=== PATIENT | female | born 1970 | race Caucasian/White ===

== ENCOUNTER → 2017-01-13 | Outpatient (CLI) | payer OTHER ==
--- NOTE | 2017-01-13 10:39 | XR ---
EXAMINATION TYPE: XR lumbosacral spine min 4V DATE OF EXAM: 01/13/2017 10:27 AM CLINICAL HISTORY: pain COMPARISON: NONE TECHNIQUE: Frontal, lateral, and oblique images of the lumbar spine are obtained. FINDINGS: There are 5 lumbar type vertebral bodies identified. The lumbar spine shows satisfactory alignment without evidence of acute fracture or dislocation. Vertebral body heights are within normal limits. Mild scattered degenerative disc space narrowing identified. The overlying soft tissue murphy ears unremarkable. IMPRESSION: No acute fracture or dislocation is seen in the lumbar spine.ICD 10 NO FRACTURE, INITIAL EVALUATION
--- NOTE | 2017-01-13 10:44 | XR ---
EXAMINATION TYPE: XR Hip Bilateral Complete DATE OF EXAM: 01/13/2017 10:27 AM CLINICAL HISTORY: pain TECHNIQUE: AP and frogleg views of the right hip are obtained. COMPARISON: None. FINDINGS: There is no acute fracture/dislocation evident. The joint space appears within normal li mits. The overlying soft tissue appears unremarkable. IMPRESSION: 1. There is no acute fracture or dislocation. ICD 10 NO FRACTURE, INITIAL EVALUATION EXAMINATION TYPE: XR Hip Bilateral Complete DATE OF EXAM: 01/13/2017 10:27 AM CLINICAL HISTORY: pain TECHNIQUE: AP and frogleg views of the left hip are obtained. COMPARISON: None. FINDINGS: There is no acute fracture/dislocation evident. The joint space appears within normal li mits. The overlying soft tissue appears unremarkable.
== END ==
LOC: RADXRMAIN 10:00
PROVIDERS: ATTEND Family Medicine
DX: M25.551 Pain in right hip (principal); M25.552 Pain in left hip; M54.9 Dorsalgia, unspecified
CPT/HCPCS: 72110; 73521

== ENCOUNTER → 2017-04-20 | Outpatient (CLI) | payer OTHER ==
--- NOTE | 2017-04-20 19:35 | CT ---
EXAMINATION TYPE: CT abdomen pelvis wo con DATE OF EXAM: 04/20/2017 COMPARISON: NONE HISTORY: Patient complains of rlq pain. CT DLP: 214.2 mGycm Automated exposure control for dose reduction was used. TECHNIQUE: Helical acquisition of images was performed from the lung bases through the pelvis. There is oral contrast. FINDINGS: There are calcifications in the right lower lobe probably due to old scarring and granulomatous disea se. There is no pleural effusion. Liver shows no focal defect. Bile ducts are not dilated. Gallbladder appears normal. Spleen and pancr eas appear normal. There is no ascites. There is no adrenal mass. Kidneys have normal size and contour. There is no hydronephrosis. There is no retroperitoneal adenopathy. There is no ascites. I see no intestinal wall thickening. There are no dilated loops. Bladder distends smoothly. I see no bony destructive process. Appendix is filled with contrast and appears normal. There is mild atherosclerotic vascular calcification. IMPRESSION: NORMAL APPENDIX. NO EVIDENCE OF RENAL STONE OR OBSTRUCTION. ATHEROSCLEROTIC VASCULAR DISEASE IN THIS RELATIVELY YOUNG PATIENT.
== END ==
LOC: RADCTMAIN 18:55
PROVIDERS: ATTEND Family Medicine
DX: I70.90 Unspecified atherosclerosis (principal); R10.9 Unspecified abdominal pain; R10.2 Pelvic and perineal pain
CPT/HCPCS: 74176

== ENCOUNTER → 2017-05-07 | Outpatient (CLI) | payer OTHER ==
--- NOTE | 2017-05-07 16:06 | XR ---
EXAMINATION TYPE: XR finger LT DATE OF EXAM: 05/07/2017 COMPARISON: NONE HISTORY: Finger pain TECHNIQUE: Three-view left fifth digit FINDINGS: No acute fractures evident. Joint spaces are narrowed. Soft tissues are unremarkable. Follow-up study can be performed 7-10 days from acute trauma for continued pain. IMPRESSION: 1. Normal three-view left fifth digit.
== END | disposition home or self-care (01) ==
LOC: RADXRMAIN 15:36
PROVIDERS: ATTEND Family Medicine
DX: M79.645 Pain in left finger(s) (principal)

== ENCOUNTER → 2017-08-20 | Outpatient (CLI) | payer OTHER ==
--- NOTE | 2017-08-20 10:45 | CT ---
EXAMINATION TYPE: CT pelvis wo con DATE OF EXAM: 08/20/2017 COMPARISON: 04/20/2017 HISTORY: Pelvic pain CT DLP: 328 mGycm Automated exposure control for dose reduction was used. CT the pelvis performed on a spiral scan at 5 mm thick sections. Study is performed with oral contras t. FINDINGS: Loops of bowel distended with oral contrast in the lower abdomen are unremarkable. Fecal debris is wi thin the colon. Small bowel loops distended with oral contrast within the pelvis appear normal. The a ppendix appears unremarkable. Urinary bladder is unremarkable. There appears to be air at the vaginal cuff. Uterus is not identifie d. Adnexal regions are clear. Very minimal free fluid is within the pelvis. This can be physiologic. Osseous structures appear intact. Sacroiliac joints are unremarkable. Femoral heads articulate with t he acetabulum. Symphysis pubis is within normal limits. IMPRESSION: 1. UNREMARKABLE PELVIS.
== END | disposition home or self-care (01) ==
LOC: RADCTMAIN 08:46
PROVIDERS: ATTEND Family Medicine
DX: R10.2 Pelvic and perineal pain (principal)
CPT/HCPCS: 72192

== ENCOUNTER → 2017-10-02 | Outpatient (CLI) | payer OTHER ==
--- NOTE | 2017-10-06 07:23 | MM ---
Reason for exam: additional evaluation requested from abnormal screening. Last mammogram was performed 1 month ago. History: Patient is postmenopausal and has history of other cancer at age 35. Took hormonal contraceptives for 12 years. Taking estrogen beginning at age 45. Physical Findings: Nurse did not find any significant physical abnormalities on exam. MG Work Up Mamm w CAD LT LM, CC with magnification, and LM with magnification view(s) were taken of the left breast. Prior study comparison: September 15, 2017, bilateral MG screening mammo w CAD. October 13, 2014, bilateral MG screening mammo w CAD. The breast tissue is heterogeneously dense. This may lower the sensitivity of mammography. Finding: There are faint, indeterminate, heterogeneous, grouped/clustered calcifications in the outer quadrant, middle position of the left breast. These results were verbally communicated with the patient and result sheet given to the patient on 10/02/17. ASSESSMENT: Suspicious, BI-RAD 4 RECOMMENDATION: Stereotactic core biopsy of the left breast. Called Dr. Atkins with mammographic findings and has scheduled an appointment for the patient for 10/20/17 at 2:[address] Boss. Biopsy scheduled for 10/16/17 at 10:00. PRELIMINARY REPORT CALLED AND FAXED TO DR. BOSS ON 10/06/17.
== END | disposition home or self-care (01) ==
LOC: RADMAMWWP 14:43
PROVIDERS: ATTEND Obstetrics & Gynecology
DX: R92.8 Other abnormal and inconclusive findings on diagnostic imaging of breast (principal)

== ENCOUNTER → 2017-10-16 | Day surgery (SDC) | payer OTHER ==
[2017-10-16 09:25] VITALS: RESP 15; TEMP 98; BMI 17.2
--- NOTE | 2017-10-16 11:09 | MM ---
EXAMINATION TYPE: MG stereo VAD BX LT DATE OF EXAM: 10/16/2017 COMPARISON: Exams dating back to 10/13/2014 CLINICAL HISTORY: Approximately 7 mm group of calcifications in the upper outer quadrant of the left breast at posterior depth, indeterminant for which stereotactic biopsy was recommended. TECHNIQUE: Stereotactic guided core biopsy of left breast. FINDINGS: The procedure of stereotactic guided core biopsy was explained to the patient. Benefits, alternatives, and risks were discussed. An informed consent was then obtained. Preprocedural timeout was performed. [facility] biopsy was chosen. Shortness pathway was lateral medial approach. After localization 10 cc of lidocaine without epinephrine was utilized to anesthetize the skin and deeper subcutaneous soft tissues along the needle tract. The biopsy gun was then advanced to the appropriate depth and prefire images were obtained confirming appropriate needle placement. Subsequently the needle was prior to and 7 cc of lidocaine with epinephrine was utilized to anesthetize site of biopsy. Subsequently a petite vacuum assisted biopsy gun was used to obtain 12 core samples. The patient tolerated the procedure well without any immediate complication. The patient was kept in the radiology department for short stay after the procedure and then discharged home in stable condition. Targeted calcifications are identified in specimen mammogram. Post biopsy mammogram shows the biopsy marker to appear in satisfactory position relative to the targeted calcifications on the preprocedure images. IMPRESSION: SUCCESSFUL, UNCOMPLICATED STEREOTACTIC GUIDED CORE BIOPSY OF A MODERATELY SUSPICIOUS 7 MM GROUP OF CALCIFICATIONS IN THE UPPER OUTER QUADRANT OF THE LEFT BREAST AT POSTERIOR DEPTH, FULL PATHOLOGY RESULTS TO FOLLOW. Pathology Results: High Risk BREAST, LEFT, STEREOTACTIC CORE BIOPSY: SCLEROSING INTRADUCTAL PAPILLOMA. FIBROCYSTIC CHANGE (STROMAL FIBROSIS, CYST FORMATION, APOCRINE METAPLASIA, ADENOSIS AND DUCT HYPERPLASIA). Recommendation (papilloma definitive surgical management likely incidental) [facility]
[2017-10-16 12:01] VITALS: BP 90/60; PULSE 81
== END ==
LOC: RADMAMWWP 08:58
PROVIDERS: ATTEND Surgery
DX: D24.2 Benign neoplasm of left breast (principal); N60.32 Fibrosclerosis of left breast; N60.02 Solitary cyst of left breast; N60.82 Other benign mammary dysplasias of left breast; N60.22 Fibroadenosis of left breast; N60.92 Unspecified benign mammary dysplasia of left breast; Z85.41 Personal history of malignant neoplasm of cervix uteri; Z90.710 Acquired absence of both cervix and uterus
CPT/HCPCS: 88305; 19081; A4648; J2001

== ENCOUNTER 2017-10-30 07:37 | Day surgery (SDC) | payer OTHER ==
[2017-10-22 08:26] VITALS: BMI 17.2
[~2017-10-30 07:37] MED LIST: DEXAMETHASONE SOD PHOSPHATE 10 MG/ML 1 ML VIAL IV ONE; HEPARIN SODIUM,PORCINE 5,000 UNIT/ML 1 ML VIAL SQ ONE; LACTATED RINGERS 1,000 ML IV SCH; MIDAZOLAM 2 MG/2 ML VIAL IV PRN; MORPHINE SULFATE 4 MG/ML SYRINGE IV PRN; ONDANSETRON 4 MG/2 ML VIAL IVP ONE; Pre Op ABX Message 1 EACH MISC MISCELLANE ONE; SCOPOLAMINE 1.5MG/72HR PATCH TRANSDERM ONE
[2017-10-30 07:55] VITALS: RESP 16
[2017-10-30] MEDS ORDERED: ALPRAZolam 0.5 MG TAB PO STA (08:09)
[2017-10-30] MEDS ORDERED: ALPRAZolam 0.5 MG TAB PO ONE (08:15)
[2017-10-30] MEDS ORDERED: ceFAZolin IN SWFI 2 GM/20 ML SYRINGE IVP STA (08:51)
[2017-10-30] MEDS ORDERED: SODIUM BICARB 4% 5 ML VIAL (0.48 MEQ/ML) MISCELLANE ONE (09:11)
[2017-10-30] MEDS ORDERED: LIDOCAINE 1% INJ 10MG/ML (20 ML MDV) SQ ONE (09:11)
[2017-10-30 09:59] VITALS: TEMP 98
[2017-10-30] MEDS ORDERED: LIDOCAINE 1%-EPI 1:100,000 20 ML VIAL SQ ONE ×2 (10:04)
--- NOTE | 2017-10-30 10:57 | P.OP ---
Date of Procedure: 10/30/17 Preoperative Diagnosis: Left breast sclerosing intraductal papilloma at 3 o clock with grouped calcifications on mammogram Postoperative Diagnosis: Same Procedure(s) Performed: Left breast wire loc lumpectomy at 3 o 'clock Anesthesia: MAC, local Surgeon: Danna Boss Pathology: other Condition: stable Disposition: PACU Indications for Procedure: 46 years old female presented with abnormal mammogram of left breast. Biopsy showed sclerosing intraductal papilloma and hence informed consent obtained from the patient for wire localization lumpectomy of left breast at 3 o'clock position. Description of Procedure: The mammogram films from wire localization biopsy were reviewed. The patient was brought to the operating room and placed in supine position with both arms out. IV sedation was given as per anesthesia team. The excess wire was cut and the left breast was prepped using ChloraPrep. Sterile drapes were applied. A timeout was performed to verify correct patient, correct procedure and correct side. Patient was confirmed to receive perioperative IV antibiotics , heparin 5000 units subcutaneous injection for DVT prophylaxis and bilateral SCDs. A 3 cm skin incision was made along overlying the left outer quadrant at wire exit site. Superior and inferior subcutaneous flaps were raised in the direction of wire. A 2 cm circumferential breast tissue was removed around the wire and the tip of the wire was included in the specimen. The specimen was then labeled with different colors as per the protocol. It was sent off as a specimen for pathology. The resulting defect was irrigated with normal saline and checked for hemostasis. The defect measured 5.1 x 2.1x 1 cm. Medium clips were placed as a marker . This was closed in 2 layers using interrupted sutures of 3-0 Vicryl followed by running subcuticular stitches of 4-0 Monocryl. Dermabond skin glue was applied. The sponge, instrument and needle count were correct x 2. Phone formation received during surgery that the area of concern along with the clip and wire was included in the specimen. Patient tolerated the procedure well and was taken to post anesthesia care unit in stable condition. Final Pathologic Diagnosis BREAST, LEFT, NEEDLE LOCALIZATION EXCISION: SCLEROSING INTRADUCTAL PAPILLOMA, MARGINS NEGATIVE. BACKGROUND FIBROCYSTIC CHANGES INCLUDING CYSTS, FIBROSIS, APOCRINE METAPLASIA, SCLEROSING ADENOSIS, AND CALCIFICATIONS. PREVIOUS BIOPSY SITE CHANGES.
[2017-10-30 11:32] VITALS: BP 96/66; PULSE 58
--- NOTE | 2017-10-30 13:44 | MM ---
EXAMINATION TYPE: MG pre op needle loc LT, MG surgical specimen LT DATE OF EXAM: 10/30/2017 COMPARISON: Prior stereotactic core biopsy October 16, 2017 and older mammogram studies. CLINICAL HISTORY: Abnormal stereotactic guided core biopsy of intraductal papilloma. TECHNIQUE: Needle localization with wire placement and surgical excision of area of concern in the left breast. FINDINGS: The procedure of needle localization with wire placement and than surgical excision was explained to the patient. Benefits, alternatives, and risks were discussed. An informed consent was then obtained. Lesion is fairly central and thus a shortest pathway is difficult. Lateral approach was chosen. The overlying skin was prepped and draped in usual sterile fashion. Lidocaine buffered with bicarbonate was used as anesthetic into the skin and subcutaneous tissue. Lidocaine with epinephrine is used as anesthetic into the deeper tissue at area of concern. A 7 cm needle was used. It was placed via a lateral approach under mammographic guidance. Subsequent 90 degrees mammogram show the needle to be in satisfactory position relative to the targeted area. At this point, wire was placed and the needle was withdrawn. The wire was fixed to patient's skin. Images were marked for surgeon. The patient tolerated the procedure well without any immediate complication. The patient was kept in the radiology department for short stay after the procedure and then taken to surgery for surgical excision. Targeted biopsy clip and wire are identified in specimen mammogram. The patient was kept in hospital for short stay after the procedure and then discharged home in stable condition. IMPRESSION: Successful, uncomplicated needle localization with wire placement and surgical excision of targeted biopsy clip in the left breast, full pathology results to follow. Pathology Results: High Risk BREAST, LEFT, NEEDLE LOCALIZATION EXCISION: SCLEROSING INTRADUCTAL PAPILLOMA, MARGINS NEGATIVE. BACKGROUND FIBROCYSTIC CHANGES INCLUDING CYSTS, FIBROSIS, APOCRINE METAPLASIA, SCLEROSING ADENOSIS, AND CALCIFICATIONS. PREVIOUS BIOPSY SITE CHANGES. Recommendation Follow up mammogram of the left breast in 6 months. TANESHA
== END 2017-10-30 11:59 | disposition home or self-care (01) ==
LOC: OR 07:37
PROVIDERS: ATTEND Surgery
DX: D24.2 Benign neoplasm of left breast (principal); N60.32 Fibrosclerosis of left breast; N60.82 Other benign mammary dysplasias of left breast; N60.22 Fibroadenosis of left breast; R92.1 Mammographic calcification found on diagnostic imaging of breast; K21.9 Gastro-esophageal reflux disease without esophagitis; F41.9 Anxiety disorder, unspecified; J44.9 Chronic obstructive pulmonary disease, unspecified; F17.210 Nicotine dependence, cigarettes, uncomplicated; Z80.0 Family history of malignant neoplasm of digestive organs; Z79.51 Long term (current) use of inhaled steroids; Z79.52 Long term (current) use of systemic steroids; Z79.899 Other long term (current) drug therapy
CPT/HCPCS: 19301; 88307; 76098; 19281; J1644; J1100; J2405; J2001; J0690

== ENCOUNTER → 2018-05-11 | Outpatient (CLI) | payer OTHER ==
--- NOTE | 2018-05-11 23:30 | XR ---
EXAMINATION TYPE: XR chest 2V DATE OF EXAM: 05/11/2018 COMPARISON: Prior chest x-ray September 29, 2014. Chest CT April 03, 2016 HISTORY: Mold exposure per order. History of COPD with chemical exposure per patient. TECHNIQUE: Frontal and lateral views of the chest are obtained. FINDINGS: Calcified nodules are granulomas right lung base are redemonstrated. There is no focal air space opacity, pleural effusion, or pneumothorax seen. Background chronic emphysematous change is se en better on CT. The cardiac silhouette size is within normal limits. Surgical clips and overlying l eft breast are redemonstrated. The osseous structures are intact. IMPRESSION: Chronic change without new suspicious acute pulmonary process. No significant change fro m prior studies.
== END | disposition home or self-care (01) ==
LOC: RADXRMAIN 06:49
PROVIDERS: ATTEND Family Medicine
DX: J44.0 Chronic obstructive pulmonary disease with (acute) lower respiratory infection (principal); Z77.120 Contact with and (suspected) exposure to mold (toxic)
CPT/HCPCS: 71046

== ENCOUNTER → 2019-01-04 | Outpatient (CLI) | payer OTHER ==
--- NOTE | 2019-01-04 16:20 | XR ---
Right hand HISTORY: Trauma and pain 3 views of the right hand There is a mid diaphyseal right fifth metacarpal fracture with periosteal new bone formation, slight volar angulation and resultant displacement, soft tissue swelling. No dislocation. IMPRESSION: Healing fifth metacarpal fracture as described, correlate for timing of injury.
== END ==
LOC: RADXRMAIN 15:02
PROVIDERS: ATTEND Family Medicine
DX: S62.306D Unspecified fracture of fifth metacarpal bone, right hand, subsequent encounter for fracture with routine healing (principal)

== ENCOUNTER → 2019-08-19 | Outpatient (CLI) | payer OTHER ==
--- NOTE | 2019-08-19 09:06 | MM ---
Reason for exam: additional evaluation requested from prior study. Last mammogram was performed 1 year and 11 months ago. History: Patient is postmenopausal, has history of high-risk lesion on a previous biopsy at age 46, and has history of other cancer at age 35. High risk MG pre op needle loc LT of the left breast, October 30, 2017. High risk MG stereo VAD BX LT of the left breast, October 16, 2017. Took hormonal contraceptives for 12 years. Taking estrogen beginning at age 45. Physical Findings: Nurse did not find any significant physical abnormalities on exam. MG Diagnostic Mammo w CAD GLENNA Bilateral CC and MLO view(s) were taken. Prior study comparison: October 02, 2017, left breast MG work up mamm w CAD LT. September 15, 2017, bilateral MG screening mammo w CAD. The breast tissue is heterogeneously dense. This may lower the sensitivity of mammography. No suspicious abnormality. Left post surgical change. These results were verbally communicated with the patient and result sheet given to the patient on 08/19/19. ASSESSMENT: Benign, BI-RAD 2 RECOMMENDATION: Routine screening mammogram of both breasts in 1 year.
--- NOTE | 2019-08-19 09:08 | USB ---
Reason for exam: additional evaluation requested from prior study. History: Patient is postmenopausal, has history of high-risk lesion on a previous biopsy at age 46, and has history of other cancer at age 35. High risk MG pre op needle loc LT of the left breast, October 30, 2017. High risk MG stereo VAD BX LT of the left breast, October 16, 2017. Took hormonal contraceptives for 12 years. Taking estrogen beginning at age 45. US Breast LT Left complete breast ultrasound includes all four quadrants, the retroareolar region and axilla. Finding demonstrates a 1.4 x 1.2 x 1.2cm lymph node at the axilla and a triangular lesion at 4 o'clock prior biopsy site, a vascular scar directly adjacent to the surgical clips. These results were verbally communicated with the patient and result sheet given to the patient on 08/19/19. ASSESSMENT: Benign, BI-RAD 2 RECOMMENDATION: Routine screening mammogram of both breasts in 1 year.
== END | disposition home or self-care (01) ==
LOC: RADMAMWWP 07:28
PROVIDERS: ATTEND Family Medicine
DX: R92.8 Other abnormal and inconclusive findings on diagnostic imaging of breast (principal); N64.4 Mastodynia; N63.20 Unspecified lump in the left breast, unspecified quadrant
CPT/HCPCS: 77066

== ENCOUNTER → 2019-09-19 | Outpatient (CLI) | payer OTHER ==
[2019-09-19 22:03] LABS: T4, Free (Free Thyroxine) 0.8 ng/dL (0.80-1.80)
== END | disposition home or self-care (01) ==
LOC: LABWHC1 13:13
PROVIDERS: ATTEND Psychiatry & Neurology Neurology
DX: G31.84 Mild cognitive impairment of uncertain or unknown etiology (principal)
CPT/HCPCS: 36415; 82607; 84439; 84443

== ENCOUNTER → 2019-10-13 | Outpatient (CLI) | payer OTHER ==
[2019-10-13 09:49] VITALS: BP 101/66; PULSE 79; RESP 16; TEMP 97.6
--- NOTE | 2019-10-13 10:30 | P.GSHP ---
History of Present Illness H&P Date: 10/13/19 Chief Complaint: left breast pain/mass Lisa is a 48 year old white female seen in consultation for Dr. Monroe regarding a left breast nodularity and pain. She had a bilateral mammogram performed on [id number] this was benign BIRADS 2 no suspicious abnormality was noted. She also had a left breast ultrasound performed on the stay same day which revealed a 1.4 x 1.2 cm lymph node in the axilla and a triangular lesion at 4:00 prior biopsy sites. These were felt to be benign BIRADS 2 and routine screening of both breasts in 1 year was recommended. The patient had a left breast needle local excisional biopsy on [id number] which revealed a sclerosing intraductal papilloma. The patient states that within the last 2 months she developed intermittent shooting pain in her left breast. This usually occurs once a day. It is near her biopsy scar. She does not know an ything specific which initiates it. She has had bilateral nipple piercings. She has no nipple discharge or skin changes is otherwise. The patient states she feels some nodularity in her left breast but no new mass or nodule for which she is concerned. The patient had cervical cancer in her early 30s and had a hysterectomy. She did not have radiation or chemotherapy. Caffeine: 3 bottles of coke/day nicotine: 1 pack q 3 days chocolate: daily hormones: premarin for 4 years Family History: maternal grandmother: colon cancer maternal grandfather: "internal cancer" ? primary paternal grandfather: pancreatic cancer Hormonal History: menarche: 16 , breast fed: yes, born at 30 menopause: hysterectomy at 32, cervical cancer, did not take ovaries BCP: 10 years hormones: 4 years Surgical History: 1. hysterectomy left ovaries 2. left breast biopsy Medical History: 1. COPD 2. decreased memory 3. decreased memory Social History: smoke: 1 pack/3 days; since 16 alcohol: none drugs: uses it every day to calm her since 17 - Constitutional Constitutional: Denies chills, Denies fever - EENT Eyes: bilateral blurred vision Ears: bilateral: tinnitus Ears, nose, mouth and throat: Reports headache, Reports sore throat - Breasts Breasts: bilateral: as per HPI - Cardiovascular Cardiovascular: Reports chest pain, Reports shortness of breath - Respiratory Comment: COPD smoker - Gastrointestinal Comment: PUD - Genitourinary (Female) Comment: UTI frequently Genitourinary: Denies dysuria, Denies hematuria - Menstruation Menstruation: Reports post hysterectomy - Musculoskeletal Comment: arthritis in hands - Integumentary Integumentary: Denies pruritus, Denies rash - Neurological Neurological: Reports tingling - Psychiatric Psychiatric: Reports anxiety, Reports depression - Endocrine Comment: weight loss Endocrine: Reports weight change - Hematologic/Lymphatic Comment: none - Allergic/Immunologic Allergic/Immunologic: Reports as per HPI Past Medical History Past Medical History: Cancer, COPD, GERD/Reflux, GI Bleed Additional Past Medical History / Comment(s): Ulcers since the age of 16. Bleeding ulcers in the past Cervical cancer-2005, runs low BP History of Any Multi-Drug Resistant Organisms: None Reported Past Surgical History: Hysterectomy Additional Past Surgical History / Comment(s): partial hysterectomy 2004 at [facility] by Dr. Yudy Whalen Past Anesthesia/Blood Transfusion Reactions: Postoperative Nausea & Vomiting (PONV) Additional Past Anesthesia/Blood Transfusion Reaction / Comment(s): nausea and vomiting. Past Psychological History: Anxiety, Bipolar, Depression Smoking Status: Current every day smoker Past Alcohol Use History: None Reported Additional Past Alcohol Use History / Comment(s): down to 1-3cig daily, used to be 1-2ppd, has smoked >30 yrs. Past Drug Use History: Marijuana Additional Drug Use History / Comment(s): daily. - Past Family History Mother Family Medical History: No Reported History Additional Family Medical History / Comment(s): negative breast bx Medications and Allergies Home Medications Medication Instructions Recorded Confirmed Type ALPRAZolam [Xanax] 2 mg PO TID PRN 06/26/15 10/13/19 History Docusate [Colace] 100 mg PO HS 10/06/17 10/13/19 History Estrogens, Conjugated [Premarin] 0.625 mg PO DAILY 10/06/17 10/13/19 History Ipratropium/Albuterol Sulfate 1 puff INHALATION BID 10/06/17 10/13/19 History [Combivent Respimat Inhaler] Varenicline Tartrate [Chantix] 1 each PO BID 10/06/17 10/13/19 History Atorvastatin [Lipitor] 10 mg PO DAILY 10/13/19 10/13/19 History Cyclobenzaprine [Flexeril] 10 mg PO HS 10/13/19 10/13/19 History Allergies Allergy/AdvReac Type Severity Reaction Status Date / Time No Known Allergies Allergy Verified 10/13/19 09:32 Surgical - Exam Vital Signs Temp Pulse Resp BP Pulse Ox 97.6 F 79 16 101/66 100 10/13/19 09:29 10/13/19 09:29 10/13/19 09:29 10/13/19 09:29 10/13/19 09:29 BMI 18.2 - General well developed, well nourished, no distress - Eyes conjective pink, no icterus eyelids normal normal ocular movement - ENT no hearing loss, no congestion - Neck no masses, trachea midline, no lymphadectomy, no venous distension - Respiratory normal expansion, normal respiratory effort, clear to auscultation - Cardiovascular Rhythm: regular Heart Sounds: normal: S1, S2 - Abdomen Abdomen: soft, non tender, bowel sounds, no guarding, no rigid, no rebound - Integumentary normal turgor - Neurologic no disoriented, no combative - Musculoskeletal normal gait, normal posture - Psychiatric oriented to time, oriented to person, oriented to place, speech is normal, memory intact breast exam: Bra 32B Right breast: Multiple positional exam fibrocystic changes, no dominant masses or nodules of concern, nipple piercing no evidence of infection Right axilla: No adenopathy of concern Left breast: Multi-positional exam fibrocystic changes, well-healed scar lower outer quadrant with no evidence of infection, no discrete lumps or masses of concern, there is some mild nodularity near the scar in the left breast which is believed to be postoperative changes nipple piercing no evidence of infection Left axilla: No adenopathy of concern Results Mammogram and ultrasound results reviewed Assessment and Plan Assessment: Impression 1. Nodularity left breast near area of scar, believed to be postoperative changes 2. Fibrocystic breast changes bilaterally 3. Bilateral nipple piercing 4. Patient taking hormone therapy, 0.625 mg premarin, daily 5. Patient smoking cigarettes 6. Patient drinks caffeinated beverages 7. Patient eats chocolate regularly 8. Breast pain greatest left breast/related proximity to the prior biopsy scar 9. Mammogram and ultrasound of left breast from August 2019 benign BIRADS 2 routine screening of both breasts in 1 year 10. No discrete mass which we will biopsy is noted at this time. 11. decreased memory, MRI scheduled for tomorrow I discussed with the patient causes of breast pain. In her case these causes may include the nicotine, caffeine, theophylline, and Premarin. She is going to discuss decreasing the Premarin does with her primary care doctor. Without the Premarin she has severe hot flashes. Additionally she is going to attempt to decrease her smoking, caffeine intake, and theophylline use. Plan: 1. Stop caffeine 2. Stop theophylline exposure 3. Risks and benefits of smoking discussed the patient is going to attempt to stop smoking 4. Patient to have bilateral mammogram in 1 year 5. Patient is going to discuss need for Premarin with primary care doctor and consider decreasing the dose of Premarin 6. follow up appointment 1 year, follow up sooner if any questions CC: Dr. Farrar Time 30 minutes, > 50% spent in planning and counselling. Time with Patient: Greater than 30
== END ==
LOC: WWCWWP 08:54
PROVIDERS: ATTEND Surgery
DX: Z53.9 Procedure and treatment not carried out, unspecified reason (principal)

== ENCOUNTER 2020-07-24 11:01 | Day surgery (SDC) | payer OTHER ==
[2020-07-20 09:48] VITALS: BMI 17.6
[~2020-07-24 11:01] MED LIST changes: -DEXAMETHASONE SOD PHOSPHATE 10 MG/ML 1 ML VIAL IV ONE; -HEPARIN SODIUM,PORCINE 5,000 UNIT/ML 1 ML VIAL SQ ONE; +LIDOCAINE 1% (10MG/ML) FOR IV START INTRADERMA PRN; -MIDAZOLAM 2 MG/2 ML VIAL IV PRN; -MORPHINE SULFATE 4 MG/ML SYRINGE IV PRN; -ONDANSETRON 4 MG/2 ML VIAL IVP ONE; -Pre Op ABX Message 1 EACH MISC MISCELLANE ONE; -SCOPOLAMINE 1.5MG/72HR PATCH TRANSDERM ONE
[2020-07-24 11:32] VITALS: RESP 16; TEMP 97.9
[2020-07-24] MEDS ORDERED: LIDOCAINE 1% INJ 10MG/ML (20 ML MDV) ONE (13:23)
[2020-07-24] MEDS ORDERED: PROPOFOL 10 MG/ML 20 ML VIAL IV ONE (13:23)
[2020-07-24] MEDS ORDERED: IV FLUID CONTINUATION 1,000 ML IV ONE (13:56)
--- NOTE | 2020-07-24 14:00 | P.PCN ---
Date of Procedure: 07/24/20 Description of Procedure: Brief history: Patient is a 49-year-old female who presents for outpatient EGD and colonoscopy for evaluation of GERD and screening for malignant neoplasm of the colon. Patient reports symptoms of epigastric abdominal pain. She also reports problems with constipation. She does not take any medicine consistently for constipation. Previously underwent EGD and colonoscopy 5 years ago. Procedure performed: Esophagogastroduodenoscopy with biopsy Colonoscopy with polypectomy Estimated blood loss: Minimal. Preoperative diagnosis: GERD, screening for malignant neoplasm of the colon, last colonoscopy 5 years ago Anesthesia: MAC Procedure: After informed consent was obtained from the patient was brought into the endoscopy unit and IV sedation was administered by anesthesia under continuous monitoring. Initially upper endoscopy was done. The Olympus GF 190 video endoscope was inserted into the mouth and esophagus intubated without any difficulty and was gradually advanced into the stomach and duodenum and carefully examined. The bulb and second part of the duodenum appeared normal, with biopsies taken . The scope was then withdrawn into the stomach adequately insufflated with air and upon careful examination the antrum and body, cardia and fundus appeared normal, except for some mild scattered erythema in the antrum and body suggestive of mild gastritis with biopsies taken . The scope was then withdrawn into the esophagus. The GE junction was located at 40 cm to the incisors and biopsy . It appeared regular with no erythema erosions or ulcerations. Rest of the esophagus appeared normal. Patient tolerated the procedure well. At this time the patient continued to remain sedation. Initial digital rectal examination was normal. Olympus CF 190 video colonoscope was then inserted into the rectum and gradually advanced to the cecum without any difficulty. Careful examination was performed as the scope was gradually being withdrawn. The prep was excellent. The cecum, ascending colon, transverse colon, descending colon, sigmoid colon and rectum appeared normal. Diminutive 2 mm rectal polyp removed with cold forcep polypectomy. Retroflexion was performed in the rectum and no lesions were noted, low-grade internal hemorrhoids . Patient tolerated the procedure well. Impression: 1. Mild gastritis. Biopsies of the duodenum, antrum body and GE junction. 2. Diminutive rectal polyp removed with cold forceps. Otherwise normal- appearing colon from rectum to cecum. Recommendations: Findings of this examination were discussed with the patient as well as her boyfriend. Okay to resume diet. Okay to resume medications. Await pathology from polypectomy and biopsies. Patient does report a family history of colon cancer and would therefore require repeat colonoscopy in 5 years.
[2020-07-24 14:15] VITALS: BP 121/68; PULSE 58
== END 2020-07-24 14:25 ==
LOC: ORWHC2ENDO 11:01
PROVIDERS: ATTEND Internal Medicine
DX: K62.1 Rectal polyp (principal); K29.70 Gastritis, unspecified, without bleeding; K59.00 Constipation, unspecified; K21.9 Gastro-esophageal reflux disease without esophagitis; F17.210 Nicotine dependence, cigarettes, uncomplicated; E78.49 Other hyperlipidemia; J44.9 Chronic obstructive pulmonary disease, unspecified; Z87.19 Personal history of other diseases of the digestive system; Z97.2 Presence of dental prosthetic device (complete) (partial); Z90.710 Acquired absence of both cervix and uterus; Z98.890 Other specified postprocedural states; Z79.51 Long term (current) use of inhaled steroids; Z79.890 Hormone replacement therapy; Z79.899 Other long term (current) drug therapy
CPT/HCPCS: 88305; 45380; 43239; J2001; J2704

== ENCOUNTER 2020-07-27 09:22 | Emergency (ER) | payer OTHER ==
[2020-07-27 09:28] VITALS: RESP 18
[2020-07-27] MEDS ORDERED: SODIUM CHLORIDE 0.9% 1,000 ML IV STA (09:53)
[2020-07-27] MEDS ORDERED: MORPHINE SULFATE 4 MG/ML SYRINGE IV STA (09:53)
[2020-07-27] MEDS ORDERED: ACETAMINOPHEN TAB 325 MG TAB PO STA (09:54)
[2020-07-27 10:31] LABS: Basophils % (A) 0 %; Eosinophils # (A) 0.1 k/uL (0-0.7); Eosinophils % (A) 1 %; HCT 44.2 % (34.0-46.0); HGB 14.1 gm/dL (11.4-16.0); Lymphocytes # (A) 2.3 k/uL (1.0-4.8); Lymphocytes % (A) 34 %; MCH 30.3 pg (25.0-35.0); MCV 94.8 fL (80.0-100.0); Monocytes # (A) 0.4 k/uL (0-1.0); Monocytes % (A) 5 %; Neutrophils # (A) 3.8 k/uL (1.3-7.7); Neutrophils % (A) 58 %; Platelet Count 313 k/uL (150-450); RBC 4.66 m/uL (3.80-5.40); RDW 13.1 % (11.5-15.5); WBC 6.7 k/uL (3.8-10.6)
[2020-07-27 10:41] LABS: ALT 8 U/L (4-34); AST 19 U/L (14-36); African American GFR (CKD) >90 (>60 ml/min/1.73 sqM); Albumin 4.5 g/dL (3.5-5.0); Alkaline Phosphatase 62 U/L (38-126); Anion Gap 6 mmol/L; Blood Urea Nitrogen 8 mg/dL (7-17); Calcium 9.8 mg/dL (8.4-10.2); Carbon Dioxide 27 mmol/L (22-30); Chloride 106 mmol/L (98-107); Glucose 94 mg/dL (74-99); Non-African American GFR(CKD) >90 (>60 ml/min/1.73 sqM); Potassium 3.5 mmol/L (3.5-5.1); Sodium 139 mmol/L (137-145); Total Bilirubin 0.8 mg/dL (0.2-1.3); Total Protein 7.5 g/dL (6.3-8.2)
[2020-07-27 10:53] LABS: Appearance,Urine Clear (Clear); Bilirubin,Urine Negative (Negative); Blood,Urine Negative (Negative); Color,Urine Yellow; Glucose,Urine (UA) Negative (Negative); Ketones,Urine Negative (Negative); Leukocyte Esterase,Urine Negative (Negative); Nitrite,Urine Negative (Negative); Protein,Urine Negative (Negative); Specific Gravity,Urine 1.011 (1.001-1.035); Urobilinogen,Urine <2.0 mg/dL (<2.0)
--- NOTE | 2020-07-27 11:06 | CT ---
EXAMINATION TYPE: CT abdomen pelvis w con DATE OF EXAM: 07/27/2020 COMPARISON: CT pelvis 08/20/2017 HISTORY: back pain, colonoscopy on 07/24/20 CT DLP: 480.8 mGycm Automated exposure control for dose reduction was used. TECHNIQUE: Helical acquisition of images from the lung bases through the pelvis have been completed. CONTRAST: Performed without Oral Contrast and with IV Contrast, patient injected with 100 mL of Isovue 300. FINDINGS: LUNG BASES: No significant abnormality is appreciated. Calcified nodules in the right lung base likel y reflect old granulomatous disease AORTA: No significant abnormality is appreciated. LIVER/GB: No significant abnormality is appreciated. PANCREAS: No significant abnormality is seen. SPLEEN: No significant abnormality is seen. ADRENALS: No significant abnormality is seen. KIDNEYS: No significant abnormality is seen. REPRODUCTIVE ORGANS: Uterus is absent. Suspect a left ovary shows a small cyst measuring 16 mm, right ovary not seen with certainty BOWEL: No significant abnormality is seen. The appendix is normal. FREE AIR: No Free Air visible. ASCITES: None visible. PELVIC ADENOPATHY: None visualized. RETROPERITONEAL ADENOPATHY: No Retroperitoneal Adenopathy visible. URINARY BLADDER: No significant abnormality is seen. OSSEOUS STRUCTURES: Mild degenerative disc disease. Lumbar spine shows normal alignment, lumbar vert ebral bodies are intact and show normal bone mineralization. Disc spaces mildly reduced L4-5 and L5-S 1, mild posterior disc bulges are present. IMPRESSION: MILD DEGENERATIVE DISC DISEASE.
[2020-07-27] MEDS ORDERED: KETOROLAC 15 MG/ML 1 ML VIAL IVP STA (11:42)
--- NOTE | 2020-07-27 11:48 | ED ---
General Adult HPI - General Chief complaint: Back Pain/Injury Stated complaint: Post Op Back Pain Time Seen by Provider: 07/27/20 09:32 Source: patient, RN notes reviewed, old records reviewed Mode of arrival: ambulatory Limitations: no limitations - History of Present Illness Initial comments: 49-year-old female patient ED for evaluation of right paralumbar back pain which does radiate around to the flank. Patient reports that she had a colonoscopy in the pain started after. She does have report that she does have a history of chronic back pain. Denies any paresthesias weakness or loss of bowel or bladder control. Denies any other acute complaints. Denies IV drug use. Systemic: Pt denies fatigue, fever/chills, rash. Pt denies weakness, night sweats, weight loss. Neuro: Pt denies headache, visual disturbances, syncope or pre-syncope. HEENT: Pt denies ocular discharge or irritation, otalgia, rhinorrhea, pharyngitis or notable lymphadenopathy. Cardiopulmonary: Pt denies chest pain, SOB, heart palpitations, dyspnea on exertion. Abdominal/GI: Pt denies abdominal pain, n/v/d. : Pt denies dysuria, burning w/ urination, frequency/urgency. Denies new onset urinary or bowel incontinence. MSK: Pt denies loss of strength or function in extremities. Neuro: Pt denies new onset weakness, paresthesias. - Related Data Home Medications Medication Instructions Recorded Confirmed Estrogens, Conjugated [Premarin] 0.625 mg PO DAILY 10/06/17 07/27/20 Atorvastatin [Lipitor] 10 mg PO HS 10/13/19 07/27/20 Albuterol Inhaler [Ventolin Hfa 1 puff INHALATION RT-TID PRN 07/20/20 07/27/20 Inhaler] Beclomethasone Dipropionate [Qvar 1 puff INHALATION RT-BID 07/20/20 07/27/20 40 mcg Redihaler] Divalproex [Depakote] 250 mg PO DAILY 07/20/20 07/27/20 Montelukast [Singulair] 10 mg PO HS 07/20/20 07/27/20 ALPRAZolam [Xanax] 1 mg PO TID PRN 07/27/20 07/27/20 Omeprazole 20 mg PO DAILY 07/27/20 07/27/20 Allergies Allergy/AdvReac Type Severity Reaction Status Date / Time No Known Allergies Allergy Verified 07/27/20 11:42 Review of Systems ROS Statement: Those systems with pertinent positive or pertinent negative responses have been documented in the HPI. ROS Other: All systems not noted in ROS Statement are negative. Past Medical History Past Medical History: Asthma, Cancer, COPD, GERD/Reflux, GI Bleed Additional Past Medical History / Comment(s): Ulcers since the age of 16. Bleeding ulcers in the past Cervical cancer-2004, runs low BP, epigastric pain intermittent, changes in bowel habits History of Any Multi-Drug Resistant Organisms: None Reported Past Surgical History: Hysterectomy Additional Past Surgical History / Comment(s): partial hysterectomy 2004 at [facility] by Dr. Yudy Whalen, colonoscopies, EGD Past Anesthesia/Blood Transfusion Reactions: Postoperative Nausea & Vomiting (PONV) Additional Past Anesthesia/Blood Transfusion Reaction / Comment(s): nausea and vomiting. Past Psychological History: Anxiety, Bipolar, Depression Smoking Status: Current every day smoker Past Alcohol Use History: None Reported Past Drug Use History: Marijuana - Past Family History Mother Family Medical History: No Reported History Additional Family Medical History / Comment(s): negative breast bx General Exam - General Exam Comments Initial Comments: Constitutional: NAD, AOX3, Pt has pleasant affect. HEENT: NC/AT, trachea midline, neck supple, no lymphadenopathy. External ears appear normal, without discharge. Mucous membranes moist. Eyes PERRLA, EOM intact. There is no scleral icterus. No pallor noted. Cardiopulmonary: RRR, no murmurs, rubs or gallops, no JVD noted. Lungs CTAB in anterior and posterior ang. No peripheral edema. Abdominal exam: Abdomen soft and non-distended. Abdomen non-tender to palpation in all 4 quadrants. Right lateral flank mildly tender to palpation in lower lumbar region. Bowel sounds active in LLQ. No hepatosplenomegaly. No ecchymosis Neuro: CN II-XII grossly intact. No nuchal rigidity. MSK: Sensation intact in upper and lower extremities. Full active ROM in upper and lower extremities, 5/5 stregnth. Feel the toe walking intact. 5 out of 5 strength psoas and quadriceps muscles. Plantar and dorsiflexion intact. Right paralumbar region mild tenderness to palpation. No skin changes. Limitations: no limitations Course Vital Signs 07/27/20 09:25 Temperature 98 F Pulse Rate 81 Respiratory 18 Rate Blood Pressure 111/77 O2 Sat by Pulse 100 Oximetry Medical Decision Making - Medical Decision Making 49-year-old female patient ED for evaluation of right paralumbar right flank pa in after colonoscopy. Physical exam displayed some tenderness in this area. Denies any red flag symptoms for back pain. Patient vital signs are stable, afebrile. Laboratory investigations are non-impressive. Lipase just mildly elevated over normal range. CT of abdomen and pelvis was obtained which displayed mild degenerative disc disease. Lumbar spine shows normal alignment. Disc spaces reduced L4-L5 and L5-S1. Mild posterior disc bulges are present. Patient is feeling improved. Patient is stable for discharge. Patient will be given orthopedic follow-up and return precautions. Case discussed with Dr. richardson. - Lab Data Result diagrams: 07/27/20 10:07/27/20 10: Lab Results 07/27/20 07/27/20 07/27/20 Range/Units 10: 10: 10: WBC 6.7 (3.8-10.6) k/uL RBC 4.66 (3.80-5.40) m/uL Hgb 14.1 (11.4-16.0) gm/dL Hct 44.2 (34.0-46.0) % MCV 94.8 (80.0-100.0) fL MCH 30.3 (25.0-35.0) pg MCHC 32.0 (31.0-37.0) g/dL RDW 13.1 (11.5-15.5) % Plt Count 313 (150-450) k/uL Neutrophils % 58 % Lymphocytes % 34 % Monocytes % 5 % Eosinophils % 1 % Basophils % 0 % Neutrophils # 3.8 (1.3-7.7) k/uL Lymphocytes # 2.3 (1.0-4.8) k/uL Monocytes # 0.4 (0-1.0) k/uL Eosinophils # 0.1 (0-0.7) k/uL Basophils # 0.0 (0-0.2) k/uL Sodium (137-145) mmol/L Potassium (3.5-5.1) mmol/L Chloride (98-107) mmol/L Carbon Dioxide (22-30) mmol/L Anion Gap mmol/L BUN (7-17) mg/dL Creatinine (0.52-1.04) mg/dL Est GFR (CKD-EPI)AfAm (>60 ml/min/1.73 sqM) Est GFR (CKD-EPI)NonAf (>60 ml/min/1.73 sqM) Glucose (74-99) mg/dL Plasma Lactic Acid Arie (0.7-2.0) mmol/L Calcium (8.4-10.2) mg/dL Total Bilirubin (0.2-1.3) mg/dL AST (14-36) U/L ALT (4-34) U/L Alkaline Phosphatase (38-126) U/L Total Protein (6.3-8.2) g/dL Albumin (3.5-5.0) g/dL Lipase (23-300) U/L Urine Color Yellow Urine Appearance Clear (Clear) Urine pH 7.0 (5.0-8.0) Ur Specific [place] 1.011 (1.001-1.035) Urine Protein Negative (Negative) Urine Glucose (UA) Negative (Negative) Urine Ketones Negative (Negative) Urine Blood Negative (Negative) Urine Nitrite Negative (Negative) Urine Bilirubin Negative (Negative) Urine Urobilinogen <2.0 (<2.0) mg/dL Ur Leukocyte Esterase Negative (Negative) Urine HCG, Qual Not Detected (Not Detectd) 07/27/20 07/27/20 Range/Units 10:23 10:23 WBC (3.8-10.6) k/uL RBC (3.80-5.40) m/uL Hgb (11.4-16.0) gm/dL Hct (34.0-46.0) % MCV (80.0-100.0) fL MCH (25.0-35.0) pg MCHC (31.0-37.0) g/dL RDW (11.5-15.5) % Plt Count (150-450) k/uL Neutrophils % % Lymphocytes % % Monocytes % % Eosinophils % % Basophils % % Neutrophils # (1.3-7.7) k/uL Lymphocytes # (1.0-4.8) k/uL Monocytes # (0-1.0) k/uL Eosinophils # (0-0.7) k/uL Basophils # (0-0.2) k/uL Sodium 139 (137-145) mmol/L Potassium 3.5 (3.5-5.1) mmol/L Chloride 106 (98-107) mmol/L Carbon Dioxide 27 (22-30) mmol/L Anion Gap 6 mmol/L BUN 8 (7-17) mg/dL Creatinine 0.65 (0.52-1.04) mg/dL Est GFR (CKD-EPI)AfAm >90 (>60 ml/min/1.73 sqM) Est GFR (CKD-EPI)NonAf >90 (>60 ml/min/1.73 sqM) Glucose 94 (74-99) mg/dL Plasma Lactic Acid Arie 1.5 (0.7-2.0) mmol/L Calcium 9.8 (8.4-10.2) mg/dL Total Bilirubin 0.8 (0.2-1.3) mg/dL AST 19 (14-36) U/L ALT 8 (4-34) U/L Alkaline Phosphatase 62 (38-126) U/L Total Protein 7.5 (6.3-8.2) g/dL Albumin 4.5 (3.5-5.0) g/dL Lipase 308 H (23-300) U/L Urine Color Urine Appearance (Clear) Urine pH (5.0-8.0) Ur Specific [place] (1.001-1.035) Urine Protein (Negative) Urine Glucose (UA) (Negative) Urine Ketones (Negative) Urine Blood (Negative) Urine Nitrite (Negative) Urine Bilirubin (Negative) Urine Urobilinogen (<2.0) mg/dL Ur Leukocyte Esterase (Negative) Urine HCG, Qual (Not Detectd) Disposition Clinical Impression: Back pain Disposition: HOME SELF-CARE Condition: Stable Instructions (If sedation given, give patient instructions): Acute Low Back Pain (ED) Additional Instructions: May use Tylenol and Motrin for discomfort. Follow up with primary care provider tomorrow, follow-up to orthopedic consult symptoms do not improve. Return to ER with any worsening symptoms. Is patient prescribed a controlled substance at d/c from ED?: No Referrals: Nomi Farrar DO [Primary Care Provider] - 1-2 days Cande Altamirano DO [Doctor of Osteopathic Medicine] - 1-2 days
[2020-07-27 12:04] VITALS: BP 115/69; PULSE 51; TEMP 97
== END 2020-07-27 12:04 | disposition home or self-care (01) ==
LOC: EC 09:22
DX: M54.5 Low back pain (principal); J44.9 Chronic obstructive pulmonary disease, unspecified; K21.9 Gastro-esophageal reflux disease without esophagitis; F41.9 Anxiety disorder, unspecified; F31.9 Bipolar disorder, unspecified; F17.200 Nicotine dependence, unspecified, uncomplicated; Z79.899 Other long term (current) drug therapy; Z85.41 Personal history of malignant neoplasm of cervix uteri; Z90.710 Acquired absence of both cervix and uterus
CPT/HCPCS: 36415; 80053; 83605; 83690; 85025; 81003; 81025; 74177; 99284; 96374; 96375; 96361 ×2; J2270; J1885; Q9967

== ENCOUNTER → 2020-09-03 | Outpatient (CLI) | payer OTHER ==
--- NOTE | 2020-09-04 13:36 | MM ---
Reason for exam: screening (asymptomatic). Last mammogram was performed 1 year ago. History: Patient is postmenopausal, has history of high-risk lesion on a previous biopsy at age 46, and has history of other cancer at age 35. High risk MG pre op needle loc LT of the left breast, October 30, 2017. High risk MG stereo VAD BX LT of the left breast, October 16, 2017. Took hormonal contraceptives for 12 years. Taking estrogen beginning at age 45. Physical Findings: A clinical breast exam by your physician is recommended on an annual basis and results should be correlated with mammographic findings. MG 3D Screening Mammo W/Cad Bilateral CC and MLO view(s) were taken. Prior study comparison: August 19, 2019, bilateral MG diagnostic mammo w CAD [place]. October 02, 2017, left breast MG work up mamm w CAD LT. The breast tissue is heterogeneously dense. This may lower the sensitivity of mammography. Finding: There are clips in the middle, posterior, central position of the left breast consistent with known excisional changes. There is no discrete abnormality. Bilateral metallic nipple artifact. ASSESSMENT: Benign, BI-RAD 2 RECOMMENDATION: Routine screening mammogram of both breasts in 1 year. Manage patient on a clinical basis with regard to left pain.
== END | disposition home or self-care (01) ==
LOC: RADMAMWWP 09:54
PROVIDERS: ATTEND Family Medicine
DX: Z12.31 Encounter for screening mammogram for malignant neoplasm of breast (principal)
CPT/HCPCS: 77063; 77067

== ENCOUNTER → 2020-11-14 | Outpatient (CLI) | payer OTHER ==
--- NOTE | 2020-11-15 06:55 | MR ---
EXAMINATION TYPE: MR lumbar spine wo con DATE OF EXAM: 11/14/2020 COMPARISON: Lumbar spine x-ray November 02, 2020. CT abdomen and pelvis July 27, 2020. HISTORY: Low back pain per order. Pain into both lower extremities per patient. TECHNIQUE: Multiplanar, multisequence imaging of the lumbar spine is performed without IV contrast. FINDINGS: There is persistent slight levoconvex scoliotic curvature centered mid lumbar spine. Sagitt al images of the lumbar spine show vertebral body heights and alignment to appear satisfactory. Some multilevel disc desiccation is seen mid to lower lumbar spine but the disc space heights are maintain ed. The conus medullaris is normal in position and signal ending mid L1 level. Incidental small homero ngioma involving superior S3 vertebra sagittal image 9 otherwise bone marrow signal intensity is with in normal limits. Axial images show T12-L1, L1-L2, and L2-L3 levels all to appear within normal limits. Axial images at L3-L4 level shows mild facet degenerative changes bilaterally. Axial images at L4-L5 level show mild facet degenerative changes and ligamentum flavum hypertrophy bi laterally. Mild broad disc bulge minimally effacing the anterior thecal sac. Patent bilateral neural foramina. Axial images at L5-S1 level show mild facet degenerative changes bilaterally. Mild broad-based career resource specialist ior disc protrusion with spinal canal preserved. Patent bilateral neural foramina. Paraspinal muscle bulk is preserved. IMPRESSION: Slight scoliotic curvature. Mild multilevel degenerative changes mid to lower lumbar spin e as detailed above. No suspicious large disc herniation to account for radiculopathy type symptoms.
== END | disposition home or self-care (01) ==
LOC: RADMRIMAIN 17:37
PROVIDERS: ATTEND Orthopaedic Surgery
DX: M47.816 Spondylosis without myelopathy or radiculopathy, lumbar region (principal); M41.86 Other forms of scoliosis, lumbar region
CPT/HCPCS: 72148

== ENCOUNTER 2021-04-02 09:26 | Emergency (ER) | payer OTHER ==
[2021-04-02 09:30] VITALS: RESP 18; TEMP 97.6
[2021-04-02] MEDS ORDERED: ORPHENADRINE 30 MG/ML 2 ML VIAL IM STA (10:03)
[2021-04-02] MEDS ORDERED: KETOROLAC 15 MG/ML 1 ML VIAL IM STA (10:03)
--- NOTE | 2021-04-02 10:26 | ED ---
General Adult HPI - General Chief complaint: Extremity Problem,Nontraumatic Stated complaint: Pain in Legs Time Seen by Provider: 04/02/21 09:36 Source: patient, RN notes reviewed Mode of arrival: wheelchair Limitations: no limitations - History of Present Illness Initial comments: 50-year-old female with a past medical history of asthma, COPD, GERD presents to the emergency room for a chief complaint of leg pain. Patient reports that she has bilateral leg pain. This started the past few days. Patient reports she has chronic back pain and has had pain in the right leg in the past from this. Patient states that today it was painful at work to move around and this prompted her to come to the emergency room. Patient denies blood or bowel joshi es. Denies saddle anesthesia or weakness of the lower extremities. Patient has been following with pain management for her back pain and has undergone physical therapy which did help somewhat. Patient has also had injections in her buttock for this.Patient has no other complaints at this time including shortness of breath, chest pain, abdominal pain, nausea or vomiting, headache, or visual diaz ges. - Related Data Home Medications Medication Instructions Recorded Confirmed Estrogens, Conjugated [Premarin] 0.625 mg PO DAILY 10/06/17 04/02/21 Atorvastatin [Lipitor] 10 mg PO HS 10/13/19 04/02/21 Montelukast [Singulair] 10 mg PO HS 07/20/20 04/02/21 ALPRAZolam [Xanax] 1 mg PO TID PRN 07/27/20 04/02/21 Omeprazole 20 mg PO DAILY 07/27/20 04/02/21 Cyclobenzaprine [Flexeril] 10 mg PO TID PRN 04/02/21 04/02/21 Fluticasone Propionate [Flovent 2 puff INHALATION RT-BID 04/02/21 04/02/21 Hfa 220 mcg] Inhaler (Unknown Sample) 1 puff INHALATION RT-DAILY PRN 04/02/21 04/02/21 Previous Rx's Medication Instructions Recorded predniSONE 50 mg PO DAILY #5 tablet 04/02/21 Allergies Allergy/AdvReac Type Severity Reaction Status Date / Time No Known Allergies Allergy Verified 04/02/21 10:35 Review of Systems ROS Statement: Those systems with pertinent positive or pertinent negative responses have been documented in the HPI. ROS Other: All systems not noted in ROS Statement are negative. Past Medical History Past Medical History: Asthma, Cancer, COPD, GERD/Reflux, GI Bleed Additional Past Medical History / Comment(s): Ulcers since the age of 16. Bleeding ulcers in the past Cervical cancer-2004, runs low BP, epigastric pain intermittent, changes in bowel habits History of Any Multi-Drug Resistant Organisms: None Reported Past Surgical History: Hysterectomy Additional Past Surgical History / Comment(s): partial hysterectomy 2004 at [facility] by Dr. Yudy Whalen, colonoscopies, EGD Past Anesthesia/Blood Transfusion Reactions: Postoperative Nausea & Vomiting (PONV) Additional Past Anesthesia/Blood Transfusion Reaction / Comment(s): nausea and vomiting. Past Psychological History: Anxiety, Bipolar, Depression Smoking Status: Current every day smoker Past Alcohol Use History: None Reported Past Drug Use History: Marijuana - Past Family History Mother Family Medical History: No Reported History Additional Family Medical History / Comment(s): negative breast bx General Exam - General Exam Comments Initial Comments: Right lower extremity: Capillary refill less than 2 seconds, DP pulse 2+ right lower extremity. Sensation intact. Patient is 90 flexion of the right hip and knee. Further flexion of the hip elicits pain in the anterior thigh. Left lower extremity: Capillary refill less than 2 seconds, DP pulse 2+ left lower extremity. Sensation intact. Patient has 90 flexion of the left hip and knee. Limitations: no limitations General appearance: alert, in no apparent distress Head exam: Present: atraumatic, normocephalic, normal inspection Eye exam: Present: normal appearance, PERRL, EOMI. Absent: scleral icterus, conjunctival injection, periorbital swelling ENT exam: Present: normal exam, mucous membranes moist Neck exam: Present: normal inspection. Absent: tenderness, meningismus, lymphadenopathy Respiratory exam: Present: normal lung sounds bilaterally. Absent: respiratory distress, wheezes, rales, rhonchi, stridor Cardiovascular Exam: Present: regular rate, normal rhythm, normal heart sounds GI/Abdominal exam: Present: soft, normal bowel sounds. Absent: distended, tenderness, guarding, rebound, rigid Course Vital Signs 04/02/21 09:27 Temperature 97.6 F Pulse Rate 103 H Respiratory 18 Rate Blood Pressure 143/78 O2 Sat by Pulse 99 Oximetry - Reevaluation(s) Reevaluation #1: 04/02/21 10:27 She did have a lumbar spine MRI 4 months ago that revealed slight scoliotic curvature with mild multilevel degenerative changes in the mid to lower lumbar spine. No suspicious large disc herniation. As was ordered for pain into both lower extremities for the patient at that time. Medical Decision Making - Medical Decision Making Vitals are stable. Patient is well appearing. Patient has bilateral lower extremity pain. She does have chronic back pain and has been seeing pain management and orthopedics. Patient had an MRI in November for this similar bilateral lower extremity pain that showed degenerative diseases. On exam today patient has neurovascular status intact lower extremities. Denies red flag symptoms such as bladder or bowel changes, weakness of the legs, saddle anesthesia, or fevers. Describes the pain is radicular in nature. At this time patient was given Toradol and Norflex and had significant improvement in symptoms. 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 I did recommend that she follow up with her orthopedic surgeon Dr. Fernández as she reports that the next step was to get epidural injections. She will return for any worsening symptoms. Disposition Clinical Impression: Bilateral leg pain Disposition: HOME SELF-CARE Condition: Good Instructions (If sedation given, give patient instructions): Lumbar Radiculopathy (ED) Additional Instructions: Please take medications as directed. Follow-up with your doctor in one to 2 days. Return to the emergency room for any worsening symptoms. Prescriptions: predniSONE 50 mg PO DAILY #5 tablet Is patient prescribed a controlled substance at d/c from ED?: No Referrals: Nomi Farrar DO [Primary Care Provider] - 1-2 days Amol Fernández DO [Family Provider] - 1-2 days Time of Disposition: 11:02
[2021-04-02] MEDS ORDERED: ACET/COD 300 MG/30 MG STARTER PACK 6 TAB BTL PO STA (11:03)
[2021-04-02 11:04] VITALS: BP 109/85
[2021-04-02 11:22] VITALS: PULSE 73
== END 2021-04-02 11:22 | disposition home or self-care (01) ==
LOC: EC 09:26
DX: M79.605 Pain in left leg (principal); M79.604 Pain in right leg; G89.29 Other chronic pain; M54.9 Dorsalgia, unspecified; J44.9 Chronic obstructive pulmonary disease, unspecified; F17.200 Nicotine dependence, unspecified, uncomplicated; K21.9 Gastro-esophageal reflux disease without esophagitis; Z79.51 Long term (current) use of inhaled steroids; Z79.899 Other long term (current) drug therapy
CPT/HCPCS: 99283; 96372; J2360; J1885

== ENCOUNTER 2021-05-30 09:10 | Day surgery (SDC) | payer OTHER ==
[2021-05-27 10:15] VITALS: BMI 20.7
[2021-05-30] MEDS ORDERED: LACTATED RINGERS 1,000 ML IV ONE ×2 (09:45→10:15)
[2021-05-30 09:51] VITALS: RESP 16; TEMP 97.3
[2021-05-30] MEDS ORDERED: MIDAZOLAM 2 MG/2 ML VIAL ONE (09:59)
[2021-05-30] MEDS ORDERED: fentaNYL (PF) 50 MCG/ML 2 ML AMP ONE (09:59)
[2021-05-30] MEDS ORDERED: TRIAMCINOLONE ACETONIDE 40 MG/ML 1 ML VIAL ONE (09:59)
[2021-05-30] MEDS ORDERED: IOPAMIDOL M200 10 ML VIAL ONE (09:59)
--- NOTE | 2021-05-30 10:10 | P.PCN ---
Description of Procedure: Preoperative diagnoses: right sacroilitis Postoperative diagnoses: right sacroilitis. Procedure: right sacroiliac joint steroid injection under fluoroscopic guidance. Surgeon: Sen Lujan MD Anesthesia: [2 mL of 1% lidocaine and moderate sedation per hospital guidelines], sedation time 8 min Fluoroscopy was used for the procedure and fluoroscopic images were saved to the radiology portion of the patient's chart. EBL: None Procedure indication: The patient had a history of severe chronic low back pain, diagnosed with sacroiliitis unresponsive to conservative treatment. Procedure description: The patient was seen and identified in the preoperative holding area, risks and benefits and alternative of the procedure and possible complications discussed with the patient, and patient agreed with the preceding, patient signed the consent, an IV was started, and vital signs were monitored and were stable throughout the procedure, patient was placed in the prone position on table and the lumbosacral area was prepped and draped with a sterile fashion, vital signs were closely monitored during the procedure, the fluoroscopy camera was placed in the contralateral oblique view on the right sacroiliac joint and the lower part of the joint was identified . Then the skin and subcutaneous tissue was anesthetized using 2 mL of 1% lidocaine then a 22- gauge Quincke-type spinal needle advanced slowly under fluoroscopy and placed in the posterior and inferior border of the right sacroiliac joint, placement confirmed with AP and lateral view, and after appropriate needle placement confirmed and after negative aspiration for heme, 1 mL of Isovue 200 was injected revealing intra-articular spread. Then a solution consisting of 1 ml of lidocaine 1% and 40 mg of Kenalog injected after negative aspiration, no paresthesia during the injection, no resistance to injection, and the needle was removed. The procedure was then repeated on the left side. Total of 80 mg of Kenalog was used for the procedure. Patient tolerated the procedure well without any complication. The patient was returned to supine position after the back was cleaned and a Band-Aid applied, the patient was transported to recovery room in stable condition and monitored for 30 minutes before being discharged home. The patient will follow up with the pain clinic in a few weeks
[2021-05-30 10:20] VITALS: BP 106/71; PULSE 79
--- NOTE | 2021-05-30 13:09 | FL ---
Fluoroscopy HISTORY: Pain 4 seconds fluoroscopy time supplied to the referring clinician. 1 intraoperative C-arm images docume nt the procedure. See dictated report from anesthesia.
== END 2021-05-30 10:58 | disposition home or self-care (01) ==
LOC: ORPAIN 09:10
PROVIDERS: ATTEND Anesthesiology
DX: M46.1 Sacroiliitis, not elsewhere classified (principal)
CPT/HCPCS: 27096; J2250; J3301; J3010; Q9966

== ENCOUNTER 2021-07-02 07:27 | Day surgery (SDC) | payer OTHER ==
[2021-07-01 09:17] VITALS: BMI 20.5
[~2021-07-02 07:27] MED LIST changes: -LIDOCAINE 1% (10MG/ML) FOR IV START INTRADERMA PRN
[2021-07-02 07:57] VITALS: RESP 16; TEMP 97.8
[2021-07-02] MEDS ORDERED: fentaNYL (PF) 50 MCG/ML 2 ML AMP ONE (08:01)
[2021-07-02] MEDS ORDERED: methylPREDNISolone ACETATE 40 MG/ML 1 ML VIAL ONE (08:01)
[2021-07-02] MEDS ORDERED: MIDAZOLAM 2 MG/2 ML VIAL ONE (08:01)
[2021-07-02] MEDS ORDERED: ROPIVACAINE 5MG/ML 20ML VIAL ONE (08:01)
--- NOTE | 2021-07-02 08:13 | P.PCN ---
Date of Procedure: 07/02/21 Procedure(s) Performed: Procedure= Right sacroiliac joints steroid injection under fluoroscopy guidance ( 2nd ) (fluoroscopy image stored on file in the radiology Department ) Preoperative diagnosis= 1- Right sacroiliitis 2-Right Sacroiliac Joints Dysfunctions Postoperative diagnosis=Same as preop Diagnosis . Complication = none Condition= stable Anesthesia= moderate sedation with intravenous Versed 2 mg , and fentanyl 50 micrograms . Indication for the procedure= patient complaining of low back pain , examination was positive for severe tenderness over the sacroiliac joints bilaterally and patient diagnosed with sacroiliitis, for this reason ,she was good candidate for sacroiliac joint steroid injection. Description of the procedure= procedure risk and benefits discussed with the patient, including but not limited, risk of infection and bleeding, and ALLERGIC reaction to the medication and not complete pain relief and patient agreed with the preceding patient taken to the operating room, placed in prone position or standard monitors applied to the patient then after induction of anesthesia back prepped with chlorhexidine 3 times , Then under strict sterile technique, first I did the right sacroiliac joint the which was identified under fluoroscopy guidance been local infiltration of the skin and subcu interstitial with lidocaine 1% then 22-gauge Quincke Needle advanced slowly under fluoroscopy and placed in the right sacroiliac joint needle placement confirmed with AP and oblique and lateral view and after appropriate needle placement confirmed and after negative aspiration, or heme , then Ropivacaine 0.5% 4 mL, and 40 mg of Depo-Medrol mixed together and injected in the right sacroiliac joint after negative aspiration patient tolerated the procedure well without any complication.
[2021-07-02] MEDS ORDERED: IV FLUID CONTINUATION 700 ML IV ONE (08:14)
[2021-07-02 08:31] VITALS: BP 101/70; PULSE 85
--- NOTE | 2021-07-02 08:37 | FL ---
Fluoroscopy History: SI JT INJ RT SI JT INJ. 4 SEC FL TIME. 1 PIC ON SYN
== END 2021-07-02 08:47 | disposition home or self-care (01) ==
LOC: ORPAIN 07:27
PROVIDERS: ATTEND Specialist
DX: M46.1 Sacroiliitis, not elsewhere classified (principal); Z90.710 Acquired absence of both cervix and uterus
CPT/HCPCS: 27096; J2250; J1030; J3010; J2795

== ENCOUNTER 2021-08-24 11:18 | Emergency (ER) | payer OTHER ==
[2021-08-24 11:48] VITALS: TEMP 97.9
[2021-08-24] MEDS ORDERED: KETOROLAC 15 MG/ML 1 ML VIAL IM STA (13:08)
[2021-08-24 13:33] VITALS: BP 112/72; PULSE 66; RESP 20
--- NOTE | 2021-08-24 13:33 | ED ---
Extremity Problem HPI - General Chief complaint: Extremity Problem,Nontraumatic Stated complaint: L leg pain Time Seen by Provider: 08/24/21 12:38 Source: patient, RN notes reviewed Mode of arrival: ambulatory Limitations: no limitations - History of Present Illness Initial comments: Patient is a 50-year-old female presenting to the emergency Department with complaints of left groin pain started a couple days ago. She states she is having some referred pain down the left upper leg. She does have history of low back pain and she currently gets injections. She denies any falls or trauma, no previous left hip surgeries or injuries. She denies any fevers or chills, no history of blood clots. She has no pain in her left calf, no recent travel. Patient denies any chest pain or shortness of breath. She has no further complaints. - Related Data Home Medications Medication Instructions Recorded Confirmed Estrogens, Conjugated [Premarin] 0.625 mg PO DAILY 10/06/17 07/01/21 Atorvastatin [Lipitor] 10 mg PO HS 10/13/19 07/01/21 Montelukast [Singulair] 10 mg PO HS 07/20/20 07/01/21 ALPRAZolam [Xanax] 1 mg PO TID PRN 07/27/20 07/01/21 Omeprazole 20 mg PO DAILY 07/27/20 07/01/21 Fluticasone Propionate [Flovent 2 puff INHALATION RT-BID 04/02/21 07/01/21 Hfa 220 mcg] Methocarbamol [Robaxin-750] 750 mg PO HS 05/27/21 07/01/21 Previous Rx's Medication Instructions Recorded predniSONE 50 mg PO DAILY 5 Days #5 tab 08/24/21 Allergies Allergy/AdvReac Type Severity Reaction Status Date / Time No Known Allergies Allergy Verified 08/24/21 11:48 Review of Systems ROS Statement: Those systems with pertinent positive or pertinent negative responses have been documented in the HPI. ROS Other: All systems not noted in ROS Statement are negative. Past Medical History Past Medical History: Asthma, Cancer, COPD, GERD/Reflux, GI Bleed Additional Past Medical History / Comment(s): Ulcers since the age of 16. Bleeding ulcers in the past Cervical cancer-2004, runs low BP, epigastric pain intermittent, changes in bowel habits, History of Any Multi-Drug Resistant Organisms: None Reported Past Surgical History: Hysterectomy Additional Past Surgical History / Comment(s): partial hysterectomy 2005 at [facility] by Dr. Yudy Whalen, colonoscopies, pain procedure, EGD. Past Anesthesia/Blood Transfusion Reactions: Postoperative Nausea & Vomiting (PONV) Additional Past Anesthesia/Blood Transfusion Reaction / Comment(s): nausea and vomiting. Past Psychological History: Anxiety, Bipolar, Depression Smoking Status: Current every day smoker - Past Family History Mother Family Medical History: No Reported History Additional Family Medical History / Comment(s): negative breast bx General Exam - General Exam Comments Initial Comments: GENERAL: Patient is well-developed and well-nourished. Patient is nontoxic and in no acute distress. HEAD: Atraumatic, normocephalic. EYES: Pupils equal round and reactive to light, extraocular movements intact, sclera anicteric, conjunctiva are normal. Eyelids were unremarkable. ENT: Moist mucous membranes. NECK: Normal range of motion, supple without lymphadenopathy or JVD. LUNGS: Unlabored respirations. Breath sounds clear to auscultation bilaterally and equal. No wheezes rales or rhonchi. HEART: Regular rate and rhythm without murmurs, rubs or gallops. ABDOMEN: Soft, nontender, normoactive bowel sounds. MUSCULOSKELETAL: Patient does have some tenderness with palpation of the left anterior and lateral hip, there is some mild pain of the left quad muscles. She does have full active range of motion with pain at the end range. She has no erythema, no rashes of the skin, no signs of infection. Her vascular intact in bilateral lower extremities. No pitting or edema. No clubbing or cyanosis. NEUROLOGICAL: Patient is alert and oriented x 3. SKIN: Warm, Dry, normal turgor, no rashes or lesions noted. Limitations: no limitations Course Vital Signs 08/24/21 08/24/21 11:44 13:31 Temperature 97.9 F Pulse Rate 79 66 Respiratory 16 20 Rate Blood Pressure 132/84 112/72 O2 Sat by Pulse 97 97 Oximetry Medical Decision Making - Medical Decision Making Patient is a 50-year-old female here with left groin pain started a few days ago. She has tried [id number] medications without relief. No falls or trauma. X-rays reveal small joint ossifications, there is some narrowing of the hip joint space but no acute fracture or dislocations. She was given injection of Toradol, discussed his findings with her. I recommended a short course of st eroids to help with inflammation, she can apply ice to the area. She is agreeable to this plan of care and she is stable for discharge. Disposition Clinical Impression: Left hip pain Disposition: HOME SELF-CARE Condition: Stable Instructions (If sedation given, give patient instructions): Hip Pain (ED) Additional Instructions: Please return to the Emergency Department if symptoms worsen or any other concerns. Trial of steroids for joint inflammation. Recommend Tylenol for any discomfort. Apply ice to the area, rest. Follow-up with orthopedics if symptoms persist. Prescriptions: predniSONE 50 mg PO DAILY 5 Days #5 tab Is patient prescribed a controlled substance at d/c from ED?: No Referrals: Nomi Farrar DO [Primary Care Provider] - 1-2 days Amol Fernández DO [Doctor of Osteopathic Medicine] - 1-2 days Time of Disposition: 14:04
--- NOTE | 2021-08-24 13:38 | XR ---
EXAMINATION TYPE: XR Hip Complete LT DATE OF EXAM: 08/24/2021 COMPARISON: NONE HISTORY: 50-year-old female with left hip pain TECHNIQUE: 2 views FINDINGS: Small os acetabuli versus degenerative labral ossifications lateral superior aspect of the acetabulum . There may be minimal axial narrowing of hip joint space but no acute fracture, subluxation, disloca tion seen. IMPRESSION: No acute osseous abnormality seen.
== END 2021-08-24 14:23 | disposition home or self-care (01) ==
LOC: EC 11:18
DX: M25.552 Pain in left hip (principal); R10.32 Left lower quadrant pain; F17.200 Nicotine dependence, unspecified, uncomplicated; J44.9 Chronic obstructive pulmonary disease, unspecified; K21.9 Gastro-esophageal reflux disease without esophagitis; Z79.899 Other long term (current) drug therapy
CPT/HCPCS: 73502; 99283; 96372; J1885

== ENCOUNTER → 2021-08-28 | Outpatient (CLI) | payer OTHER ==
[2021-08-28 14:03] LABS: HCT 38.8 % (37.2-46.3); HGB 12.6 g/dL (12.0-15.0); MCHC 32.5 g/dL (32.0-37.0); MCV 92.4 fL (80.0-97.0); Mean Platelet Volume 9.5 fL (9.5-12.2); Platelet Count 387 X 10*3/uL (140-440); RDW 15.1 % (11.5-14.5); WBC 18.57 X 10*3/uL (4.50-10.00)
[2021-08-28 14:44] LABS: Basophils # (M) 0 X 10*3/uL (0.00-0.10); Eosinophils # (M) 0 X 10*3/uL (0.04-0.35); Lymphocytes # (M) 2.97 X 10*3/uL (0.90-5.00); Metamyelocytes % 1 % (0-0); Monocytes # (M) 1.86 X 10*3/uL (0.20-1.00); Myelocytes % 2 % (0-0); Neutrophils % (M) 70 %; Promyelocytes # (M) 0.19 k/uL (0); Promyelocytes % 1 % (0-0)
[2021-08-28 16:30] LABS: Erythrocyte Sedimentation Rate 13 mm/Hr (0-20)
[2021-08-28 17:27] LABS: Uric Acid 3.6 mg/dL (2.9-7.7)
[2021-08-28 18:11] LABS: C Reactive Protein <0.30 mg/dL (0.00-0.80); Rheumatoid Factor, Qnt <10 IU/mL (0-15)
[2021-08-29 11:22] LABS: HLA B27 POSITIVE
== END | disposition home or self-care (01) ==
LOC: LABWHC1 10:10
PROVIDERS: ATTEND Orthopaedic Surgery
DX: M25.552 Pain in left hip (principal)
CPT/HCPCS: 36415; 84550; 85025; 85652; 86038; 86140; 86431; 86812

== ENCOUNTER 2021-11-15 17:58 | Emergency (ER) | payer OTHER ==
[2021-11-15 18:04] VITALS: TEMP 97.5
[2021-11-15 19:53] LABS: Basophils % (A) 0 %; Eosinophils % (A) 0 %; HCT 40.9 % (34.0-46.0); HGB 13.7 gm/dL (11.4-16.0); Lymphocytes # (A) 0.7 k/uL (1.0-4.8); Lymphocytes % (A) 16 %; MCH 30.8 pg (25.0-35.0); MCHC 33.4 g/dL (31.0-37.0); MCV 92.2 fL (80.0-100.0); Monocytes # (A) 0.1 k/uL (0-1.0); Monocytes % (A) 3 %; Neutrophils # (A) 3.7 k/uL (1.3-7.7); Neutrophils % (A) 80 %; Platelet Count 361 k/uL (150-450); RBC 4.43 m/uL (3.80-5.40); RDW 14.2 % (11.5-15.5); WBC 4.6 k/uL (3.8-10.6)
[2021-11-15 20:06] LABS: Albumin 4.1 g/dL (3.5-5.0); Calcium 9.4 mg/dL (8.4-10.2); Potassium 4.2 mmol/L (3.5-5.1); Total Bilirubin 0.5 mg/dL (0.2-1.3); Total Protein 6.9 g/dL (6.3-8.2)
--- NOTE | 2021-11-15 20:52 | CT ---
EXAMINATION TYPE: CT chest angio for PE CT DLP: 244.7 mGycm, Automated exposure control for dose reduction was used. DATE OF EXAM: 11/15/2021 8:22 PM COMPARISON: Chest radiograph from same day. Multiple CTs of the chest with most recent on 04/03/2016. CLINICAL INDICATION:Female, 51 years old with history of sob, cp, mass; abd xray, sob TECHNIQUE/CONTRAST: CTA scan of the thorax is performed with IV Contrast, patient injected with 80 mL of Isovue 370, pulm onary embolism protocol. MIP images are created and reviewed. FINDINGS: Pulmonary Artery: There is no evidence for a filling defect within the pulmonary vasculature to sugge st acute pulmonary embolism. The pulmonary artery is of normal size. Lungs/Pleura: Right lower lobe calcified granulomas are present. There is centrilobular emphysema obey nges most pronounced in the lung apices and moderate in severity. There is left upper lobe consolidat ion changes the flattened appearance however there is nodular like areas best appreciated on sagittal imaging measuring up to 13 mm. Airway: Large airways are patent. Heart: Within normal limits for size. Vasculature: No evidence of aortic aneurysm. Mediastinum: No gross evidence of adenopathy. Musculoskeletal: No acute osseous abnormalities Soft Tissues: Unremarkable. Lower neck: No significant findings. Upper Abdomen: Atrophy of the pancreatic body and tail.. Small splenule is present. IMPRESSION: 1. No evidence of pulmonary embolism. 2. Left upper lobe consolidation nodular-like components. Correlate for pneumonia. Underlying maligna ncy is not entirely excluded. Consider short-term follow-up with CT chest after treatment and 4-6 wee ks. 3. Emphysema changes.
--- NOTE | 2021-11-15 21:42 | ED ---
General Adult HPI - General Chief complaint: Recheck/Abnormal Lab/Rx Stated complaint: abn chest xray Time Seen by Provider: 11/15/21 18:55 Source: patient Mode of arrival: ambulatory Limitations: no limitations - History of Present Illness Initial comments: 51-year-old female presents emergency department for abnormal chest x-ray. She states that since she is a smoker she goes yearly for an x-ray. X-ray was scheduled for today. It did demonstrate a concerning lesion in her left upper lobe and therefore Dr. Farrar called her and told her immediately come to the emergency department. She denies any shortness of breath, cough or fever. She does have a history of COPD and does use inhalers at home. Denies any chest pain. Does have a previous history of cervical cancer. She is a current smoker. No concern for . Denies any abdominal pain. No ripping or tearing sensation to her back. No other alleviating, precipitating or modifying factors - Related Data Home Medications Medication Instructions Recorded Confirmed Estrogens, Conjugated [Premarin] 0.625 mg PO DAILY 10/06/17 11/15/21 Atorvastatin [Lipitor] 10 mg PO HS 10/13/19 11/15/21 ALPRAZolam [Xanax] 1 mg PO BID PRN 07/27/20 11/15/21 Omeprazole 20 mg PO DAILY 07/27/20 11/15/21 Fluticasone Propionate [Flovent 2 puff INHALATION RT-BID 04/02/21 11/15/21 Hfa 220 mcg] Albuterol Sulfate [Proair Hfa] 2 puff INHALATION RT-QID PRN 11/15/21 11/15/21 Azithromycin [Zithromax Z-pack (6 See Taper PO DIRECTED 11/15/21 11/15/21 tabs)] predniSONE See Taper PO DIRECTED 11/15/21 11/15/21 Previous Rx's Medication Instructions Recorded Amoxicillin/Potassium Clav 1 tab PO BID 1 Days #20 tab 11/15/21 [Augmentin 875-125 Tablet] Azithromycin [Zithromax Z-pack (6 0 mg PO DIRECTED #6 tab 11/15/21 tabs)] Allergies Allergy/AdvReac Type Severity Reaction Status Date / Time No Known Allergies Allergy Verified 11/15/21 18:00 Review of Systems ROS Statement: Those systems with pertinent positive or pertinent negative responses have been documented in the HPI. ROS Other: All systems not noted in ROS Statement are negative. Past Medical History Past Medical History: Asthma, Cancer, COPD, GERD/Reflux, GI Bleed Additional Past Medical History / Comment(s): Ulcers since the age of 16. Bleeding ulcers in the past Cervical cancer-2004, runs low BP, epigastric pain intermittent, changes in bowel habits, History of Any Multi-Drug Resistant Organisms: None Reported Past Surgical History: Hysterectomy Additional Past Surgical History / Comment(s): partial hysterectomy 2004 at [facility] by Dr. Yudy Whalen, colonoscopies, pain procedure, EGD. Past Anesthesia/Blood Transfusion Reactions: Postoperative Nausea & Vomiting (PONV) Additional Past Anesthesia/Blood Transfusion Reaction / Comment(s): nausea and vomiting. Past Psychological History: Anxiety, Bipolar, Depression Smoking Status: Current every day smoker Past Alcohol Use History: None Reported Past Drug Use History: Marijuana - Past Family History Mother Family Medical History: No Reported History Additional Family Medical History / Comment(s): negative breast bx General Exam Limitations: no limitations General appearance: alert, in no apparent distress Head exam: Present: atraumatic, normocephalic, normal inspection Eye exam: Present: normal appearance, PERRL, EOMI. Absent: scleral icterus, conjunctival injection, periorbital swelling ENT exam: Present: normal exam, mucous membranes moist Neck exam: Present: normal inspection. Absent: tenderness, meningismus, lymphadenopathy Respiratory exam: Present: normal lung sounds bilaterally. Absent: respiratory distress, wheezes, rales, rhonchi, stridor Cardiovascular Exam: Present: regular rate, normal rhythm, normal heart sounds. Absent: systolic murmur, diastolic murmur, rubs, gallop, clicks GI/Abdominal exam: Present: soft, normal bowel sounds. Absent: distended, tenderness, guarding, rebound, rigid Extremities exam: Present: normal inspection, full ROM, normal capillary refill. Absent: tenderness, pedal edema, joint swelling, calf tenderness Back exam: Present: normal inspection Neurological exam: Present: alert, oriented X3, CN II-XII intact Psychiatric exam: Present: normal affect, normal mood Skin exam: Present: warm, dry, intact, normal color. Absent: rash Course Vital Signs 11/15/21 11/15/21 18:00 22:25 Temperature 97.5 F L Pulse Rate 79 90 Respiratory 20 18 Rate Blood Pressure 119/68 106/77 O2 Sat by Pulse 97 96 Oximetry Medical Decision Making - Medical Decision Making Upon arrival patient is placed into room 6. Thorough history and physical exam is performed. Laboratory studies were conducted. She does over for a CT of her chest which demonstrates no evidence of pulmonary embolism. Left upper lobe consolidation with nodular-like components. Correlate for pneumonia. Underlying malignancy not excluded. I will place the patient on antibiotics to demonstrate there is any resolution in her symptoms. Instructed to follow back up with Dr. Farrar. Patient will also need to follow up with pulmonology for possible biopsy. Given info for Dr. Wylie. Instructed return to emergency department for any new or worsening symptoms for patient was discharged home in stable condition - Lab Data Result diagrams: 11/15/21 19:48 11/15/21 19:48 Lab Results 11/15/21 11/15/21 Range/Units 19:48 19:48 WBC 4.6 (3.8-10.6) k/uL RBC 4.43 (3.80-5.40) m/uL Hgb 13.7 (11.4-16.0) gm/dL Hct 40.9 (34.0-46.0) % MCV 92.2 (80.0-100.0) fL MCH 30.8 (25.0-35.0) pg MCHC 33.4 (31.0-37.0) g/dL RDW 14.2 (11.5-15.5) % Plt Count 361 (150-450) k/uL MPV 7.0 Neutrophils % 80 % Lymphocytes % 16 % Monocytes % 3 % Eosinophils % 0 % Basophils % 0 % Neutrophils # 3.7 (1.3-7.7) k/uL Lymphocytes # 0.7 L (1.0-4.8) k/uL Monocytes # 0.1 (0-1.0) k/uL Eosinophils # 0.0 (0-0.7) k/uL Basophils # 0.0 (0-0.2) k/uL Sodium 138 (137-145) mmol/L Potassium 4.2 (3.5-5.1) mmol/L Chloride 107 (98-107) mmol/L Carbon Dioxide 24 (22-30) mmol/L Anion Gap 7 mmol/L BUN 11 (7-17) mg/dL Creatinine 1.03 (0.52-1.04) mg/dL Est GFR (CKD-EPI)AfAm 74 (>60 ml/min/1.73 sqM) Est GFR (CKD-EPI)NonAf 64 (>60 ml/min/1.73 sqM) Glucose 109 H (74-99) mg/dL Calcium 9.4 (8.4-10.2) mg/dL Total Bilirubin 0.5 (0.2-1.3) mg/dL AST 27 (14-36) U/L ALT 14 (4-34) U/L Alkaline Phosphatase 76 (38-126) U/L Total Protein 6.9 (6.3-8.2) g/dL Albumin 4.1 (3.5-5.0) g/dL Disposition Clinical Impression: Lung mass Disposition: HOME SELF-CARE Condition: Stable Instructions (If sedation given, give patient instructions): Pulmonary Nodules (ED) Additional Instructions: You have a lung mass in your left lung - you need further evaluation of this. You'll be on antibiotics for 10 days. You need to follow up with the instructional technology instructor for possible biopsy of this area. Return to the emergency room for any new or worsening symptoms Prescriptions: Amoxicillin/Potassium Clav [Augmentin 875-125 Tablet] 1 tab PO BID 1 Days #20 tab Azithromycin [Zithromax Z-pack (6 tabs)] 0 mg PO DIRECTED #6 tab Is patient prescribed a controlled substance at d/c from ED?: No Referrals: Noim Farrar DO [Primary Care Provider] - 1-2 days Renee Vasquez MD [STAFF PHYSICIAN] - 1-2 days Time of Disposition: 21:48
[2021-11-15] MEDS ORDERED: AMOXICILLIN 875 MG TAB PO STA (21:46)
[2021-11-15] MEDS ORDERED: AZITHROMYCIN 500 MG TAB PO STA (21:46)
[2021-11-15] MEDS ORDERED: AMOXIC-POT CLAV 875-125MG 1 EACH TAB PO STA (21:47)
[2021-11-15 22:44] VITALS: BP 106/77; PULSE 90; RESP 18
== END 2021-11-15 22:27 | disposition home or self-care (01) ==
LOC: EC 17:58
DX: R91.8 Other nonspecific abnormal finding of lung field (principal); K21.9 Gastro-esophageal reflux disease without esophagitis; J45.909 Unspecified asthma, uncomplicated; F17.200 Nicotine dependence, unspecified, uncomplicated; Z79.890 Hormone replacement therapy
CPT/HCPCS: 36415; 80053; 85025; 71275; 99284; Q9967

== ENCOUNTER → 2021-11-15 | Outpatient (CLI) | payer OTHER ==
--- NOTE | 2021-11-15 11:39 | XR ---
EXAMINATION TYPE: XR chest 2V DATE OF EXAM: 11/15/2021 COMPARISON: NONE HISTORY: Chest pain TECHNIQUE: Frontal and lateral views of the chest are obtained. FINDINGS: There is nodularity left upper lobe suspicious for malignancy either a primary or metastatic. Nodular density right lower lobe is stable relative to prior study. CT of the chest is advised. No evidence for pneumothorax. No pleural effusion. The cardiac silhouette size is within normal limits. The osseous structures are grossly intact. IMPRESSION: 1. Nodular left upper lobe densities noted suspicious for malignancy (primary versus metastatic) CT of the chest is advised. A Perkins level critical message alert has been initiated for Nomi Farrar DO via the [employer] Critical Results System on 11/15/2021 11:37 AM. This message alert has been sent to Nomi bender DO via the preferences provided by the clinician for the receipt of Radiology Critical Findings . Message ID [id number].
== END | disposition home or self-care (01) ==
LOC: RADXRMAIN 11:07
PROVIDERS: ATTEND Family Medicine
DX: J42 Unspecified chronic bronchitis (principal); Z72.0 Tobacco use
CPT/HCPCS: 71046

== ENCOUNTER → 2021-11-26 | Outpatient (CLI) | payer OTHER ==
--- NOTE | 2021-11-26 13:15 | XR ---
EXAMINATION TYPE: XR chest 2V DATE OF EXAM: 11/26/2021 COMPARISON: X-ray dated 11/15/2021 HISTORY: Pneumonia TECHNIQUE: Frontal and lateral views of the chest are obtained. FINDINGS: The previously seen heterogeneous opacity in the left upper to midlung zone has slightly regressed ye t not completely resolved. It could represent focal area of pneumonia however underlying lesion canno t be excluded. As previously suggested, follow-up to complete resolution after proper treatment in 4 weeks is advised. Stable right basal calcified granulomas and surgical clips superimposed on the left lower lung zone. Minimal fibrotic changes are seen at the lung apices bilaterally. Grossly unremarkable remainder of t he lungs. No sizable pleural effusion or pneumothorax. No gross cardiomegaly. No gross aggressive bon e lesion. IMPRESSION: Slight regression of the left upper to mid lung zone heterogeneous opacity, still incompletely charac terized and could represent a regressing pneumonia however underlying lesion cannot be excluded. Mushtaq mmend follow-up x-ray to complete resolution in 4 weeks.
== END | disposition home or self-care (01) ==
LOC: RADXRMAIN 08:50
PROVIDERS: ATTEND Family Medicine
DX: J18.9 Pneumonia, unspecified organism (principal)
CPT/HCPCS: 71046

== ENCOUNTER → 2021-12-13 | Outpatient (CLI) | payer OTHER ==
--- NOTE | 2021-12-14 11:13 | XR ---
EXAMINATION TYPE: XR elbow complete RT DATE OF EXAM: 12/13/2021 COMPARISON: NONE HISTORY: Pain FINDINGS: Three views of the elbow demonstrate no pathologic joint effusion. The osseous structures are intact . There is no acute fracture or dislocation. IMPRESSION: 1. No acute fracture or dislocation. If symptoms persist follow-up study in 7 to 10 days could be ob tained.
--- NOTE | 2021-12-14 11:17 | XR ---
EXAMINATION TYPE: XR knee complete RT DATE OF EXAM: 12/13/2021 COMPARISON: NONE HISTORY: Pain TECHNIQUE: Three views are submitted. FINDINGS: Joint spaces are preserved. Osseous structures are intact. No acute fracture seen. IMPRESSION: 1. No acute fracture or dislocation.
== END | disposition home or self-care (01) ==
LOC: RADXRMAIN 11:21
PROVIDERS: ATTEND Family Medicine
DX: M25.521 Pain in right elbow (principal); M25.561 Pain in right knee

== ENCOUNTER 2022-01-30 10:45 | Day surgery (SDC) | payer OTHER ==
[2022-01-29 08:22] VITALS: BMI 20.7
[~2022-01-30 10:45] MED LIST changes: +ALBUTEROL NEB (CONC) 2.5 MG/0.5 ML INHALATION ONE; +DEXAMETHASONE SOD PHOSPHATE 4 MG/ML 1 ML VIAL IV ONE; -LACTATED RINGERS 1,000 ML IV SCH; +LIDOCAINE 1% (10MG/ML) FOR IV START INTRADERMA PRN; +LIDOCAINE 2% (PF) 20 MG/ML 5 ML VIAL INHALATION ONE; +LIDOCAINE VISCOUS 300 MG/15 ML CUP MUCOUS MEM ONE; +ONDANSETRON 4 MG/2 ML VIAL IVP ONE; +SODIUM CHLORIDE 0.9% 1,000 ML IV SCH; +fentaNYL (PF) 50 MCG/ML 2 ML AMP IV PRN
[2022-01-30] MEDS: LACTATED RINGERS 1,000 ML IV SCH ×2 (11:22→12:29)
--- NOTE | 2022-01-30 12:03 | CT ---
EXAMINATION TYPE: CT Chest jarod Galarza Protocol DATE OF EXAM: 01/30/2022 COMPARISON: PET CT December 20, 2021 HISTORY: Pulmonary nodules/Mass CT DLP: [address] thorax without contrast. Automated exposure control for dose reduction was used. FINDINGS: Exam is for bronchoscopy planning and not for diagnostic purposes. Background mild to moderate underl david emphysematous change with mass like parenchymal scarring in the inferior central left upper lobe corresponding to area of increased hypermetabolic uptake on PET/CT is redemonstrated. Grouped small calcified nodules in the right lung base are again seen. IMPRESSION: As above.
[2022-01-30] MEDS ORDERED: PROPOFOL 10 MG/ML 20 ML VIAL IV ONE (12:31)
[2022-01-30] MEDS ORDERED: MIDAZOLAM 2 MG/2 ML VIAL ONE (12:31)
[2022-01-30] MEDS ORDERED: fentaNYL (PF) 50 MCG/ML 2 ML AMP ONE (12:31)
[2022-01-30] MEDS ORDERED: LIDOCAINE 2% INJ 20 MG/ML (2 ML VIAL) ONE (12:31)
[2022-01-30] MEDS ORDERED: SUCCINYLCHOLINE CHLORIDE 100 MG/5 ML SYR IV ONE (12:31)
--- NOTE | 2022-01-30 13:12 | P.PCN ---
Date of Procedure: 01/30/22 Preoperative Diagnosis: Left upper lobe opacity, rule out pneumonia, rule out malignancy Postoperative Diagnosis: Left upper lobe opacity, rule out pneumonia, rule out malignancy Procedure(s) Performed: Navigational bronchoscopy, airway inspection, left upper lobe bronchioloalveolar lavage, left upper lobe transbronchial biopsy Anesthesia: NICOLETTEA Surgeon: Makeda Heath Campaign Marketing Manager #1: Mally Presley Estimated Blood Loss (ml): 0 Pathology: other Condition: stable Disposition: same day Operative Findings: The patient had a preoperative computed tomography scan of the chest using the Veran protocol. The CAT scan images were reviewed. The left upper lobe opacity was identified it was mapped appropriately. The CAT scan images are uploaded into a USB and then into the [employer] tower. After obtaining the consent the patient was taken to the OR suite he was intubated and put on mechanical ventilation by anesthesia then the scope was advanced to the ET tube until the Trachea was seen and it was normal and then the payam appears normal then the scope advanced to the left main and MATEO LB1- LB3 were seen and no endobronchial lesions were seen then the scope advanced to the lingula and the LB4 and LB5 were seen and no endobronchial lesions were seen the scope retracted and advanced to the left lower lobes LB6 to LB12 were seen one by one and no endobronchial lesions, then the scope was retracted back to the payam and advanced to the Right main and RUL RB1 and RB2 and RB3 were seen one by one and no endobronchial lesions were seen the scope then retracted and advanced to the BI and RML RB4 and RB5 were seen and no endobronchial lesions were seen then it was retracted and advanced to the RLL RB6 to RB12 were seen one by one and no endobronchial lesions. There was significant amount of rest or secretions that were rather thick, Copious, nonpurulent and therapeutic it was suctioning was done. Navigation bronchoscopy was performed. The main payam and the secondary payam on the left were used as the reference points and appropriate calibration was done. Following that, using a navigation for sepsis, the bronchoscope was advanced to the right upper lobe posterior segment and various transbronchial biopsies of the left upper lobe opacity was done without any complications. No endobronchial bleeding was encountered. A bronchial lavage of the left upper lobe O2 sat was done. A total of 80 mL of fluid was infused and 20 mL was suctioned back and this will be sent for cytology and microbial cultures. The procedure completed without any complications. The bronchoscope was removed. The patient was extubated and following that the patient was transferred recovery in stable condition. The chest x-rays to follow to rule out pneumothorax. If all is negative and stable, the patient will be discharged home to be followed up with us in the office.
[2022-01-30 13:20] VITALS: TEMP 97
[2022-01-30 13:33] VITALS: RESP 16
--- NOTE | 2022-01-30 13:46 | XR ---
EXAMINATION TYPE: XR chest 1V portable DATE OF EXAM: 01/30/2022 COMPARISON: Chest x-ray dated 11/26/2021 HISTORY: Postop lung biopsy TECHNIQUE: Single frontal view of the chest is obtained. FINDINGS: There is no evident pneumothorax or pleural effusion. Abnormal density persists in the lef t upper lobe. Calcifications are present over the lower right chest, postop changes noted the left br east. Cardiac mediastinal silhouette is stable. Technique is apical lordotic. IMPRESSION: No evident complication status post lung biopsy.
[2022-01-30 14:12] VITALS: BP 115/75; PULSE 78
[2022-01-30 23:23] LABS: Appearance,BF Slightly Cloudy
== END 2022-01-30 14:22 | disposition home or self-care (01) ==
LOC: ORWHC2ENDO 10:45
PROVIDERS: ATTEND Internal Medicine Critical Care Medicine
DX: R91.1 Solitary pulmonary nodule (principal); E78.5 Hyperlipidemia, unspecified; J44.9 Chronic obstructive pulmonary disease, unspecified; F17.200 Nicotine dependence, unspecified, uncomplicated; F41.9 Anxiety disorder, unspecified; K21.9 Gastro-esophageal reflux disease without esophagitis; Z79.899 Other long term (current) drug therapy
CPT/HCPCS: 31625; 31624; 31627; 31628; 31645; 87798 ×3; 87496; 87498; 87529; 88108; 88305; 89050; 87252; 87502; 87634; 87070; 87205; 87116; 87102; 87206; 71045; 71250; J2250; J1100; J2405; J3010; J0330; J2704; J2001; 88341; 88342

== ENCOUNTER → 2022-05-12 | Outpatient (CLI) | payer OTHER ==
--- NOTE | 2022-05-12 09:09 | CT ---
EXAMINATION TYPE: CT chest w con CT DLP: 392 mGycm, Automated exposure control for dose reduction was used. DATE OF EXAM: 05/12/2022 8:42 AM COMPARISON: CT chest 01/30/2022, PET/CT 12/20/2021, CTA chest 11/15/2021. CLINICAL INDICATION:Female, 51 years old with history of R91.1;Lung nodule TECHNIQUE: Multiple axial images were obtained through the chest following the administration of 70 c c of Isovue 300. Coronal and sagittal reformats reviewed. FINDINGS: LUNGS/ PLEURA: Redemonstration of moderate upper lobe predominant centrilobular emphysematous changes . Increased left upper lobe/apical masslike consolidation/scarring from prior examination. Previously demonstrated FDG avidity. This is most increased along the apical aspect. Stable group small calcifi ed nodules/granulomas in the right lung base. No new suspicious pulmonary nodules. AIRWAY: Patent. Regions of bronchiectasis within the masslike consolidation in the left upper lobe/ap ex. HEART: Size within normal limits. No pericardial effusion. Coronary artery calcifications. MEDIASTINUM: Stable precarinal 9 mm short axis lymph node (series 3, image 22). Not FDG avid on previ ous PET/CT. No new suspicious lymphadenopathy. VASCULATURE: No aortic aneurysm. Atherosclerotic calcification of the aorta and its branches. MUSCULOSKELETAL: No acute osseous abnormalities SOFT TISSUES/LYMPH NODES: Surgical clips demonstrated within the left breast. No axillary lymphadenop athy. LOWER NECK: No significant findings. UPPER ABDOMEN: No significant findings. IMPRESSION: * Increased left upper lobe/apical masslike consolidation/scarring from prior examination. This demo nstrated FDG avidity on prior PET/CT and is again concerning for pulmonary neoplasm versus other etio logies such as infectious/inflammatory process. No concerning lymphadenopathy. Correlation with lung biopsy results is recommended. * Moderate emphysematous changes.
== END | disposition home or self-care (01) ==
LOC: RADCTMAIN 08:02
PROVIDERS: ATTEND Internal Medicine
DX: R91.1 Solitary pulmonary nodule (principal)
CPT/HCPCS: 71260; Q9967

== ENCOUNTER → 2022-07-08 | Outpatient (CLI) | payer OTHER ==
--- NOTE | 2022-07-09 08:34 | MM ---
Reason for Exam: Screening (asymptomatic). Last mammogram was performed 1 year(s) and 11 month(s) ago. Patient History: Menarche at age 16. First Full-Term at age 28. Hysterectomy at age 35. Postmenopausal. Other cancer, age 35. Currently using Estrogen, starting at age 45. Patient used Hormonal Contraceptives for 12 years. 10/30/2017, High risk Core Biopsy on the left side. 10/16/2017, High risk Core Biopsy on the left side. Risk Values: Giuliana 5 year model risk: 1.6%. NCI Lifetime model risk: 13.6%. Prior Study Comparison: 10/02/2017 Left Diagnostic Mammogram, [facility]. 08/19/2019 Bilateral Diagnostic Mammogram, [facility]. 09/03/2020 Bilateral Screening Mammogram, [facility]. Tissue Density: There are scattered fibroglandular densities. Findings: Analyzed By CAD. Postsurgical changes to the left breast. There is no suspicious group of microcalcifications or new suspicious mass in either breast. Overall Assessment: Benign, BI-RAD 2 Management: Screening Mammogram of both breasts in 1 year. A clinical breast exam by your physician is recommended on an annual basis and results should be correlated with mammographic findings. [facility] will attempt to contact patient to return for supplemental views and ultrasound if indicated. Electronically signed and approved by: Slade Fernandez DO
== END | disposition home or self-care (01) ==
LOC: RADMAMWWP 16:28
PROVIDERS: ATTEND Obstetrics & Gynecology
DX: Z12.31 Encounter for screening mammogram for malignant neoplasm of breast (principal)
CPT/HCPCS: 77063; 77067

== ENCOUNTER → 2022-10-09 | Outpatient (CLI) | payer OTHER ==
--- NOTE | 2022-10-09 09:39 | CT ---
EXAMINATION TYPE: CT chest w con CT DLP: 391 mGycm, Automated exposure control for dose reduction was used. DATE OF EXAM: 10/09/2022 9:19 AM COMPARISON: CT chest 05/12/2022, 01/30/2022. CLINICAL INDICATION:Female, 51 years old with history of R91.1 LUNG NODULE; PHH, follow up to lung no dule TECHNIQUE: Multiple axial images were obtained through the chest following the administration of 100 cc of Isovue 300. Coronal and sagittal reformats reviewed. FINDINGS: LUNGS/ PLEURA: Redemonstration of moderate upper lobe predominant centrilobular emphysematous changes . Increased size of left upper lobe/apical masslike consolidation with somewhat nodular and wedgelike appearance. This is increased most prominently along the posterior and medial apical portion (series 4, image 10). This grossly measures 3.9 x 3.8 cm. Stable group of small calcified nodules/granulomas in the right lung base. AIRWAY: Patent. Regions of bronchiectasis within the masslike consolidation in the left upper lobe/ap ex. HEART: Size within normal limits. No pericardial effusion. Coronary artery calcifications. MEDIASTINUM: Stable enlarged precarinal 1 cm short axis lymph node (series 3, image 21). No new suspi cious lymphadenopathy. VASCULATURE: No aortic aneurysm. Atherosclerotic calcification of the aorta and its branches. MUSCULOSKELETAL: No acute osseous abnormalities SOFT TISSUES/LYMPH NODES: No axillary adenopathy. Surgical clips redemonstrated within the left breas t. LOWER NECK: No significant findings. UPPER ABDOMEN: No significant findings. IMPRESSION: 1. Increase size of left upper lobe/apical masslike consolidation/scarring from prior exams. This aga in is concerning for pulmonary neoplasm versus other etiologies such as infectious/inflammatory proce ss and/or scarring with atelectasis. Consider further evaluation with PET/CT and/or tissue sampling. 2. Stable enlarged precarinal lymph node. 3. Moderate COPD changes.
== END | disposition home or self-care (01) ==
LOC: RADCTMAIN 08:48
PROVIDERS: ATTEND Internal Medicine
DX: J44.9 Chronic obstructive pulmonary disease, unspecified (principal); R91.1 Solitary pulmonary nodule; R59.0 Localized enlarged lymph nodes
CPT/HCPCS: 71260; Q9967

== ENCOUNTER → 2022-10-20 | Outpatient (CLI) | payer OTHER ==
[2022-10-20 15:55] LABS: INR 0.9 (<1.2); Partial Thromboplastin Time 23.3 sec (22.0-30.0); Prothrombin Time 9.6 sec (9.0-12.0)
[2022-10-20 23:08] LABS: Basophils # (A) 0.03 X 10*3/uL (0.00-0.10); Basophils % (A) 0.4 %; Eosinophils # (A) 0.03 X 10*3/uL (0.04-0.35); Eosinophils % (A) 0.4 %; HGB 11.8 g/dL (12.0-15.0); Immature Grans, Automated 0.3 %; Lymphocytes # (A) 2.06 X 10*3/uL (0.90-5.00); Lymphocytes % (A) 27.2 %; MCHC 31.9 g/dL (32.0-37.0); MCV 90.9 fL (80.0-97.0); Mean Platelet Volume 10.2 fL (9.5-12.2); Monocytes # (A) 0.65 X 10*3/uL (0.20-1.00); Monocytes % (A) 8.6 %; NRBC Per 100 WBC 0 /100 WBCS (0.0-0.0); Neutrophils # (A) 4.77 X 10*3/uL (1.80-7.70); Neutrophils % (A) 63.1 %; Platelet Count 352 X 10*3/uL (140-440); RBC 4.07 X 10*6/uL (4.10-5.20); RDW 14.3 % (11.5-14.5); WBC 7.56 X 10*3/uL (4.50-10.00)
[2022-10-20 23:24] LABS: Appearance,Urine Clear (Clear); Bilirubin,Urine Negative (Negative); Blood,Urine Negative (Negative); Color,Urine Yellow (Yellow); Ketones,Urine Trace mg/dL (Negative); Nitrite,Urine Negative (Negative); PH, Urine 5.5 (5.0-8.0); Specific Gravity,Urine 1.019 (1.001-1.030)
[2022-10-20 23:52] LABS: African American GFR (CKD) 121.4 (60.0-200.0); Blood Urea Nitrogen 7.9 mg/dL (9.0-27.0); Non-African American GFR(CKD) 104.8 (60.0-200.0)
== END | disposition home or self-care (01) ==
LOC: LABPAT 14:23
PROVIDERS: ATTEND Thoracic Surgery (Cardiothoracic Vascular Surgery)
DX: Z01.818 Encounter for other preprocedural examination (principal); C34.12 Malignant neoplasm of upper lobe, left bronchus or lung; R58 Hemorrhage, not elsewhere classified; R35.0 Frequency of micturition; R00.1 Bradycardia, unspecified; R94.31 Abnormal electrocardiogram [ECG] [EKG]; Z79.899 Other long term (current) drug therapy
CPT/HCPCS: 81003; 82565; 82947; 84520; 85025; 85610; 85730; 86850; 86900; 86901; 93005

== ENCOUNTER 2023-01-27 18:56 | Emergency (ER) | payer OTHER ==
[2023-01-27 19:06] VITALS: TEMP 97.9
[2023-01-27] MEDS ORDERED: HYDROmorphone 1 MG/ML 1 ML SYRINGE IM STA (19:26)
[2023-01-27] MEDS ORDERED: KETOROLAC 15 MG/ML 1 ML VIAL IM STA (19:26)
--- NOTE | 2023-01-27 19:35 | ED ---
General Adult HPI - General Chief complaint: Extremity Injury, Lower Stated complaint: L LEG PAIN Time Seen by Provider: 01/27/23 19:10 Source: patient, RN notes reviewed Mode of arrival: wheelchair Limitations: no limitations - History of Present Illness Initial comments: Patient is a pleasant 52-year-old female presenting to the emergency Department with left leg pain and back pain. Onset of symptoms was over a week ago. Patient does have history of previous back problems. Patient also has chronic hip pains. Patient states discomfort starts left lower back and does radiate to the leg and almost to the knee. No new incontinence or retention of bowel or bladder. No weakness or loss of sensation. - Related Data Home Medications Medication Instructions Recorded Confirmed Estrogens, Conjugated [Premarin] 0.9 mg PO DAILY 10/06/17 10/23/22 Atorvastatin [Lipitor] 10 mg PO HS 10/13/19 10/23/22 ALPRAZolam [Xanax] 0.5 mg PO BID PRN 07/27/20 10/23/22 Omeprazole 20 mg PO DAILY 07/27/20 10/23/22 Albuterol Sulfate [Proair Hfa] 2 puff INHALATION RT-QID PRN 11/15/21 10/23/22 Fluticasone/Umeclidin/Vilanter 1 puff INHALATION DAILY 10/23/22 10/23/22 [Trelegy Ellipta 200-62.5-25] Previous Rx's Medication Instructions Recorded Acetaminophen Tab [Tylenol] 1,000 mg PO Q6HR PRN tab 11/25/22 Azithromycin [Zithromax] 500 mg PO DAILY #30 tab 11/25/22 Ethambutol [Myambutol] 800 mg PO DAILY #30 tab 11/25/22 Magnesium Oxide [Mag-Ox] 400 mg PO BID #60 tab 11/25/22 Sennosides-Docusate Sodium 2 each PO HS PRN tab 11/25/22 [Senokot-S] polyethylene glycoL 3350 [Miralax] 17 gm PO DAILY PRN packet 11/25/22 rifAMPin [Rifadin] 600 mg PO DAILY #30 cap 11/25/22 traMADol HCl [Ultram] 50 mg PO Q6HR PRN #120 tab 11/25/22 Cyclobenzaprine [Flexeril] 10 mg PO TID PRN #12 tablet 01/27/23 Ibuprofen [Motrin] 600 mg PO Q6HR PRN #20 tab 01/27/23 Allergies Allergy/AdvReac Type Severity Reaction Status Date / Time No Known Allergies Allergy Verified 01/27/23 19:06 Review of Systems ROS Statement: Those systems with pertinent positive or pertinent negative responses have been documented in the HPI. ROS Other: All systems not noted in ROS Statement are negative. Constitutional: Denies: fever Eyes: Denies: eye pain ENT: Denies: ear pain Respiratory: Denies: cough Cardiovascular: Denies: chest pain Gastrointestinal: Denies: abdominal pain Genitourinary: Denies: dysuria Musculoskeletal: Reports: as per HPI, back pain Skin: Denies: rash Neurological: Denies: headache, weakness Past Medical History Past Medical History: Cancer Additional Past Medical History / Comment(s): hx ulcers, hx Cervical cancer, runs low BP, epigastric pain intermittent, changes in bowel habits, hx COVID 2020, migranes, bronchitits "few months ago", spot on lung seen on PET scan History of Any Multi-Drug Resistant Organisms: None Reported Past Surgical History: Hysterectomy Additional Past Surgical History / Comment(s): colonoscopies, left breast biopsy/with wire, EGD. pain clinic procedure, lung mass removal Past Anesthesia/Blood Transfusion Reactions: Motion Sickness, Postoperative Nausea & Vomiting (PONV) Additional Past Anesthesia/Blood Transfusion Reaction / Comment(s): . Past Psychological History: Anxiety Smoking Status: Former smoker Past Alcohol Use History: None Reported Past Drug Use History: Marijuana - Past Family History Mother Family Medical History: No Reported History Additional Family Medical History / Comment(s): . General Exam Limitations: no limitations General appearance: alert, in no apparent distress Head exam: Present: normocephalic Eye exam: Present: normal appearance Neck exam: Present: normal inspection Respiratory exam: Present: normal lung sounds bilaterally Cardiovascular Exam: Present: regular rate, normal rhythm Expanded Peripheral pulses: 2+: Posterior Tibialis (R), Posterior Tibialis (L), Dorsalis Pedis (R), Dorsalis Pedis (L) GI/Abdominal exam: Present: soft. Absent: tenderness Extremities exam: Present: normal inspection. Absent: pedal edema, calf tenderness Back exam: Present: tenderness (Minimal tenderness left lower paralumbar region) Neurological exam: Present: alert. Absent: motor sensory deficit Expanded Sensory exam: Lower Extremity Light Touch: Normal Motor strength exam: RLE: 5, LLE: 5 Psychiatric exam: Present: normal affect, normal mood Skin exam: Present: intact Course Vital Signs 01/27/23 19:03 Temperature 97.9 F Pulse Rate 98 Respiratory 20 Rate Blood Pressure 95/60 O2 Sat by Pulse 98 Oximetry Medical Decision Making - Medical Decision Making Was pt. sent in by a medical professional or institution (, [facility], FORMING PROCESS LINE WORKER, urgent care, hospital, or assisted...) When possible be specific @ -No Did you speak to anyone other than the patient for history (EMS, parent, family, police, friend...)? What history was obtained from this source @ -No Did you review nursing and triage notes (agree or disagree)? Why? @ -I reviewed and agree with nursing and triage notes Were old charts reviewed (outside hosp., previous admission, EMS record, old EKG, old radiological studies, urgent care reports/EKG's, assisted records)? Report findings @ -No old charts were reviewed Differential Diagnosis (chest pain, altered mental status, abdominal pain women, abdominal pain men, vaginal bleeding, weakness, fever, dyspnea, syncope, headache, dizziness, GI bleed, back pain, seizure, CVA, palpatations, mental health)? @ -Differential Back Pain: Strain, zoster, cauda equina syndrome, epidural abscess, vertebral osteomyelitis, discitis, fracture, subluxation, disc herniation, DJD, spinal stenosis, dissection, AAA, pancreatitis, peptic ulcer disease, pyelonephritis, kidney stone, this is not meant to be an all-inclusive list. EKG interpreted by me (3pts min.). @ -As above X-rays interpreted by me (1pt min.). @ -None done CT interpreted by me (1pt min.). @ -None done U/S interpreted by me (1pt. min.). @ -None done What testing was considered but not performed or refused? (CT, X-rays, U/S, labs)? Why? @ -None What meds were considered but not given or refused? Why? @ -Considered steroids however patient like to avoid this at this time. Did you discuss the management of the patient with other professionals (professionals i.e. Dr., PA, FORMING PROCESS LINE WORKER, lab, RT, psych nurse, social contact worker, corrugated sheet material sheeter, teacher, railroad police officer, showcase trimmer)? Give summary @ -No Was smoking cessation discussed for >3mins.? @ -No Was critical care preformed (if so, how long)? @ -No Were there social determinants of health that impacted care today? How? (Homelessness, low income, unemployed, alcoholism, drug addiction, transportation, low edu. Level, literacy, decrease access to med. care, assisted, rehab)? @ -No Was there de-escalation of care discussed even if they declined (Discuss DNR or withdrawal of care, Hospice)? DNR status @ -No What co-morbidities impacted this encounter? (DM, HTN, Smoking, COPD, CAD, Cancer, CVA, ARF, Chemo, Hep., AIDS, mental health diagnosis, sleep apnea, morbid obesity)? @ -None Was patient admitted / discharged? Hospital course, mention meds given and route, prescriptions, significant lab abnormalities, going to OR and other pertinent info. @ -Discussion had with patient regarding management. Patient would like to avoid steroids. Patient will be provided anti-inflammatories and muscle axis for home. Patient is recommended close follow-up with her primary care physician and consider more physical therapy as she has done previously. Undiagnosed new problem with uncertain prognosis? @ -No Drug Therapy requiring intensive monitoring for toxicity (Heparin, Nitro, Insulin, Cardizem)? @ -No Were any procedures done? @ -No Diagnosis/symptom? @ -Back pain Acute, or Chronic, or Acute on Chronic? @ -Acute on chronic Uncomplicated (without systemic symptoms) or Complicated (systemic symptoms)? @ -default Side effects of treatment? @ -No Exacerbation, Progression, or Severe Exacerbation? @ -No Poses a threat to life or bodily function? How? (Chest pain, [place], [place], pneumonia, PE, COPD, DKA, ARF, appy, cholecystitis, CVA, Diverticulitis, Homicidal, Suicidal, threat to staff... and all critical care pts) @ -No Disposition Clinical Impression: Low back pain Disposition: HOME SELF-CARE Condition: Stable Instructions (If sedation given, give patient instructions): Back Pain (ED) Additional Instructions: Please do follow-up with primary care physician in the next day or 2 for recheck. Consider physical therapy. Prescriptions have been sent to pharmacy. Return for increased pain, weakness, loss of control of bowel or bladder, loss of sensation, worsening symptoms or other concerns. Prescriptions: Cyclobenzaprine [Flexeril] 10 mg PO TID PRN #12 tablet PRN Reason: Pain Ibuprofen [Motrin] 600 mg PO Q6HR PRN #20 tab PRN Reason: Pain Is patient prescribed a controlled substance at d/c from ED?: No Referrals: Preet Escobedo MD [STAFF PHYSICIAN] - 1-2 days Time of Disposition: 19:34
[2023-01-27 19:46] VITALS: BP 132/75; PULSE 82; RESP 16
== END 2023-01-27 19:44 | disposition home or self-care (01) ==
LOC: EC 18:56
DX: M54.50 Low back pain, unspecified (principal); F41.9 Anxiety disorder, unspecified; F12.90 Cannabis use, unspecified, uncomplicated; Z87.891 Personal history of nicotine dependence; Z86.16 Personal history of COVID-19; Z79.899 Other long term (current) drug therapy
CPT/HCPCS: 99283; 96372 ×2; J1170; J1885

== ENCOUNTER → 2023-04-20 | Outpatient (CLI) | payer OTHER | END | disposition home or self-care (01) | LOC: LABWHC1 16:32 | PROVIDERS: ATTEND Internal Medicine Infectious Disease | DX: Z00.00 Encounter for general adult medical examination without abnormal findings (principal); A31.9 Mycobacterial infection, unspecified | CPT/HCPCS: 87070; 87205 ==

== ENCOUNTER 2023-06-25 14:53 | Emergency (ER) | payer BC, OTHER ==
[2023-06-25 15:52] VITALS: TEMP 98
[2023-06-25] MEDS ORDERED: KETOROLAC 15 MG/ML 1 ML VIAL IM STA (16:58)
--- NOTE | 2023-06-25 17:30 | ED ---
Fall HPI - General Chief Complaint: Fall Stated Complaint: L leg pain Time Seen by Provider: 06/25/23 16:32 Source: patient Mode of arrival: ambulatory - History of Present Illness Initial Comments: 52-year-old female presenting for evaluation after head injury. States that yesterday she had a slip and fall onto the left hip. She is scheduled for hip replacement with Dr. Stover on 07/10. She reports pain that starts in the groin and radiates down to the knee. She is unable to manage the pain at home with Musella and gabapentin. No numbness, tingling. - Related Data Home Medications Medication Instructions Recorded Confirmed Estrogens, Conjugated [Premarin] 0.9 mg PO DAILY 10/06/17 10/23/22 Atorvastatin [Lipitor] 10 mg PO HS 10/13/19 10/23/22 ALPRAZolam [Xanax] 0.5 mg PO BID PRN 07/27/20 10/23/22 Omeprazole 20 mg PO DAILY 07/27/20 10/23/22 Albuterol Sulfate [Proair Hfa] 2 puff INHALATION RT-QID PRN 11/15/21 10/23/22 Fluticasone/Umeclidin/Vilanter 1 puff INHALATION DAILY 10/23/22 10/23/22 [Trelegy Ellipta 200-62.5-25] Previous Rx's Medication Instructions Recorded Acetaminophen Tab [Tylenol] 1,000 mg PO Q6HR PRN tab 11/25/22 Azithromycin [Zithromax] 500 mg PO DAILY #30 tab 11/25/22 Ethambutol [Myambutol] 800 mg PO DAILY #30 tab 11/25/22 Magnesium Oxide [Mag-Ox] 400 mg PO BID #60 tab 11/25/22 Sennosides-Docusate Sodium 2 each PO HS PRN tab 11/25/22 [Senokot-S] polyethylene glycoL 3350 [Miralax] 17 gm PO DAILY PRN packet 11/25/22 rifAMPin [Rifadin] 600 mg PO DAILY #30 cap 11/25/22 traMADol HCl [Ultram] 50 mg PO Q6HR PRN #120 tab 11/25/22 Cyclobenzaprine [Flexeril] 10 mg PO TID PRN #12 tablet 01/27/23 Ibuprofen [Motrin] 600 mg PO Q6HR PRN #20 tab 01/27/23 Allergies Allergy/AdvReac Type Severity Reaction Status Date / Time No Known Allergies Allergy Verified 06/25/23 15:51 Review of Systems ROS Statement: Those systems with pertinent positive or pertinent negative responses have been documented in the HPI. ROS Other: All systems not noted in ROS Statement are negative. Past Medical History Past Medical History: Cancer Additional Past Medical History / Comment(s): hx ulcers, hx Cervical cancer, runs low BP, epigastric pain intermittent, changes in bowel habits, hx COVID 2020, migranes, bronchitits "few months ago", spot on lung seen on PET scan History of Any Multi-Drug Resistant Organisms: None Reported Past Surgical History: Hysterectomy Additional Past Surgical History / Comment(s): colonoscopies, left breast biopsy/with wire, EGD. pain clinic procedure, lung mass removal Past Anesthesia/Blood Transfusion Reactions: Motion Sickness, Postoperative Naus ea & Vomiting (PONV) Additional Past Anesthesia/Blood Transfusion Reaction / Comment(s): . Past Psychological History: Anxiety Smoking Status: Former smoker Past Alcohol Use History: None Reported Past Drug Use History: Marijuana - Past Family History Mother Family Medical History: No Reported History Additional Family Medical History / Comment(s): . General Exam Limitations: no limitations General appearance: alert, in no apparent distress Head exam: Present: atraumatic, normocephalic, normal inspection Eye exam: Present: normal appearance, EOMI Neck exam: Present: normal inspection Respiratory exam: Absent: respiratory distress Left Hip exam: Present: normal inspection, tenderness. Absent: full ROM Upper Leg exam: Present: normal inspection. Absent: tenderness Knee exam: Present: normal inspection, tenderness. Absent: full ROM Neurovascular tendon exam: Present: no vascular compromise Neurological exam: Present: alert, oriented X3, CN II-XII intact Psychiatric exam: Present: normal affect, normal mood Skin exam: Present: warm, dry, intact, normal color. Absent: rash Course Vital Signs 06/25/23 06/25/23 15:47 19:29 Temperature 98.0 F 98.0 F Pulse Rate 67 72 Respiratory 18 20 Rate Blood Pressure 121/77 136/70 O2 Sat by Pulse 100 100 Oximetry Medical Decision Making - Medical Decision Making Was pt. sent in by a medical professional or institution (, PA, POLL CLERK, urgent care, hospital, or [facility]...) When possible be specific @ -No Did you speak to anyone other than the patient for history (EMS, parent, family, police, friend...)? What history was obtained from this source @ -No Did you review nursing and triage notes (agree or disagree)? Why? @ -I reviewed and agree with nursing and triage notes Were old charts reviewed (outside hosp., previous admission, EMS record, old EKG, old radiological studies, urgent care reports/EKG's, [facility] records)? Report findings @ -No old charts were reviewed Differential Diagnosis (chest pain, altered mental status, abdominal pain women, abdominal pain men, vaginal bleeding, weakness, fever, dyspnea, syncope, headache, dizziness, GI bleed, back pain, seizure, CVA, palpatations, mental health, musculoskeletal)? @ -Differential Musculoskeletal Muscular strain, contusion, ligament sprain, fracture, arthritis, septic arthritis, bursitis, cellulitis, muscle spasm, nerve compression, DVT, arterial occlusion, herpes zoster, electrolyte abnormality, tumor.... This is not meant to be in all inclusive list EKG interpreted by me (3pts min.). @ -As above X-rays interpreted by me (1pt min.). @ -No acute osseous process seen on knee or hip and pelvis x-ray CT interpreted by me (1pt min.). @ -None done U/S interpreted by me (1pt. min.). @ -None done What testing was considered but not performed or refused? (CT, X-rays, U/S, labs)? Why? @ -None What meds were considered but not given or refused? Why? @ -None Did you discuss the management of the patient with other professionals (professionals i.e. , PA, POLL CLERK, lab, RT, psych nurse, social work nurse, capital project engineer, teacher, fare enforcement officer, leather case finisher)? Give summary @ -No Was smoking cessation discussed for >3mins.? @ -No Was critical care preformed (if so, how long)? @ -No Were there social determinants of health that impacted care today? How? (Homelessness, low income, unemployed, alcoholism, drug addiction, transportation, low edu. Level, literacy, decrease access to med. care, fci, rehab)? @ -No Was there de-escalation of care discussed even if they declined (Discuss DNR or withdrawal of care, Hospice)? DNR status @ -No What co-morbidities impacted this encounter? (DM, HTN, Smoking, COPD, CAD, Cancer, CVA, ARF, Chemo, Hep., AIDS, mental health diagnosis, sleep apnea, morbid obesity)? @ -None Was patient admitted / discharged? Hospital course, mention meds given and route, prescriptions, significant lab abnormalities, going to OR and other pertinent info. @ -52-year-old female presenting with chief complaint of left hip pain after a fall yesterday she is scheduled for hip replacement in the coming weeks. X-rays are negative for fracture or dislocation. She is educated on today's findings and supportive management at home. Follow-up with orthopedics. Follow-up with PCP. Report back to ER with any new or worsening symptoms. Discussed return parameters and answered all questions. Patient conveyed verbal understanding and agreed to the plan. I discussed this case in detail with my attending Dr. Duffy Undiagnosed new problem with uncertain prognosis? @ -No Drug Therapy requiring intensive monitoring for toxicity (Heparin, Nitro, Insulin, Cardizem)? @ -No Were any procedures done? @ -No Diagnosis/symptom? @ -Hip pain Acute, or Chronic, or Acute on Chronic? @ -Acute Uncomplicated (without systemic symptoms) or Complicated (systemic symptoms)? @ -uncomplicated Side effects of treatment? @ -No Exacerbation, Progression, or Severe Exacerbation? @ -No Poses a threat to life or bodily function? How? (Chest pain, [place], [place], pneumonia, PE, COPD, DKA, ARF, appy, cholecystitis, CVA, Diverticulitis, Homicidal, Suicidal, threat to staff... and all critical care pts) @ -No Disposition Clinical Impression: Hip pain Disposition: HOME SELF-CARE Condition: Good Instructions (If sedation given, give patient instructions): Hip Pain (ED) Additional Instructions: Follow-up with PCP. Report back to ER with a normal worsening symptoms. Is patient prescribed a controlled substance at d/c from ED?: No Referrals: Preet Escobedo MD [Primary Care Provider] - 1-2 days Time of Disposition: 19:17
--- NOTE | 2023-06-25 18:12 | XR ---
EXAMINATION TYPE: XR Hip LT and AP Pelvis DATE OF EXAM: 06/25/2023 5:38 PM CLINICAL INDICATION:Female, 52 years old with history of fall; [facility] COMPARISON: None. TECHNIQUE: The left hip was examined in the frontal and lateral projections and a AP pelvis. FINDINGS: No evidence for acute process, joint dislocation or significant soft tissue swelling. IMPRESSION: No acute process.
--- NOTE | 2023-06-25 18:14 | XR ---
EXAMINATION TYPE: XR knee complete LT DATE OF EXAM: 06/25/2023 5:36 PM CLINICAL INDICATION:Female, 52 years old with history of fall; COMPARISON: None. TECHNIQUE: The Left knee(s) was examined in Frontal, lateral and oblique projections. FINDINGS: No evidence of any acute osseous pathology, soft tissue swelling, or joint effusion is no nam. Minimal osteophytes formation of the patella. IMPRESSION: 1. No acute osseous pathology. 2. Minimal tricompartmental osteoarthritic changes.
[2023-06-25] MEDS ORDERED: HYDROmorphone 0.5 MG/0.5 ML SYRINGE IM STA (19:17)
[2023-06-25 19:31] VITALS: BP 136/70; PULSE 72; RESP 20
== END 2023-06-25 19:38 | disposition home or self-care (01) ==
LOC: EC 14:53
DX: M25.552 Pain in left hip (principal); F41.9 Anxiety disorder, unspecified; Z87.891 Personal history of nicotine dependence; F12.90 Cannabis use, unspecified, uncomplicated; Z79.899 Other long term (current) drug therapy
CPT/HCPCS: 73502; 73562; 99283; 96372 ×2; J1885; J1170

== ENCOUNTER → 2023-07-03 | Outpatient (CLI) | payer BC, OTHER ==
[2023-07-03 10:36] LABS: INR 0.9 (<1.2); Partial Thromboplastin Time 25.4 sec (22.0-30.0); Prothrombin Time 9.4 sec (9.0-12.0)
[2023-07-03 16:12] LABS: HCT 41.7 % (37.2-46.3); HGB 13.2 d/dL (12.0-15.0); MCH 28.9 pg (27.0-32.0); MCHC 31.7 d/dL (32.0-37.0); MCV 91.4 FL (80.0-97.0); Mean Platelet Volume 10.4 FL (9.5-12.2); NRBC Per 100 WBC 0 X 10*3/uL (0.00-0.01); Platelet Count 346 X 10*3/uL (140-440); RBC 4.56 X 10*6/uL (4.10-5.20); RDW 14.7 % (11.5-14.5); WBC 4.82 X 10*3/uL (4.50-10.00)
[2023-07-03 16:16] LABS: ALT 12 U/L (8-44); AST 22 U/L (13-35); Albumin 4.5 d/dL (3.8-4.9); Albumin/Globulin Ratio 1.88 Ratio (1.60-3.17); Alkaline Phosphatase 128 U/L (41-126); BUN/Creat Ratio 18.43 Ratio (12.00-20.00); Blood Urea Nitrogen 12.9 mg/dL (9.0-27.0); Calcium 9.7 mg/dL (8.7-10.3); Carbon Dioxide 25.2 mmol/L (21.6-31.8); Chloride 104 mmol/L (96-109); Globulin 2.4 d/dL (1.6-3.3); Glucose 92 mg/dL (70-110); Potassium 4.4 mmol/L (3.5-5.5); Sodium 141 mmol/L (135-145); Total Bilirubin <0.2 mg/dL (0.3-1.2); Total Protein 6.9 d/dL (6.2-8.2)
[2023-07-03 16:45] LABS: Appearance,Urine Clear (Clear); Bilirubin,Urine Negative (Negative); Blood,Urine Negative (Negative); Color,Urine Yellow (Yellow); Ketones,Urine Negative (Negative); Nitrite,Urine Negative (Negative); Urobilinogen,Urine 0.2 E.U./DL
== END | disposition home or self-care (01) ==
LOC: LABPAT 09:29
PROVIDERS: ATTEND Orthopaedic Surgery
DX: Z01.818 Encounter for other preprocedural examination (principal); M17.12 Unilateral primary osteoarthritis, left knee
CPT/HCPCS: 80053; 81003; 85027; 85610; 85730; 86850; 86900; 86901; 87070

== ENCOUNTER → 2023-12-30 | Outpatient (CLI) | payer BC ==
--- NOTE | 2024-01-05 13:56 | MM ---
Reason for Exam: Clinical finding. Last mammogram was performed 1 year(s) and 5 month(s) ago. Indicated Problems: Non-bloody discharge of both sides (White) for 2 Year(s). Patient History: Menarche at age 16. First Full-Term at age 28. Hysterectomy at age 35. Postmenopausal. Patient has history of breast feeding. Currently using Estrogen, starting at age 45. Patient used Hormonal Contraceptives for 12 years. 10/30/2017, High risk Core Biopsy on the left side. 10/16/2017, High risk Core Biopsy on the left side. Risk Values: Giuliana 5 year model risk: 1.5%. NCI Lifetime model risk: 13.1%. Prior Study Comparison: 10/13/2014 Bilateral Screening Mammogram, [facility]. 09/15/2017 Bilateral Screening Mammogram, [facility]. 10/02/2017 Left Diagnostic Mammogram, [facility]. 08/19/2019 Bilateral Diagnostic Mammogram, [facility]. 09/03/2020 Bilateral Screening Mammogram, [facility]. 07/08/2022 Bilateral MG 3D screening mammo w/cad, [facility]. Tissue Density: There are scattered areas of fibroglandular density. Findings: Analyzed By CAD. The pattern is symmetrical. Postbiopsy surgical clips are within the left breast. Benign-appearing calcifications right breast. No significant interval changes are evident. No suspicious groups of microcalcifications, spiculated or lobular masses, architectural distortion or other secondary signs of malignancy are mammographically apparent. Overall Assessment: Benign, BI-RAD 2 Management: Screening Mammogram of both breasts in 1 year. A negative mammogram report should not preclude additional follow up of suspicious palpable abnormalities. Patient should continue monthly self breast exam. A clinical breast exam by your physician is recommended on an annual basis and results should be correlated with mammographic findings. Electronically signed and approved by: Alex Mariee D.O. Radiologis
== END | disposition home or self-care (01) ==
LOC: RADMAMWWP 07:46
PROVIDERS: ATTEND Family Medicine
DX: R92.323 Mammographic fibroglandular density, bilateral breasts (principal); N64.3 Galactorrhea not associated with childbirth; Z78.0 Asymptomatic menopausal state
CPT/HCPCS: 77062; 77066

== ENCOUNTER 2024-04-26 19:17 | Emergency (ER) | payer BC, OTHER ==
[2024-04-26 19:31] VITALS: TEMP 98.2
[2024-04-26] MEDS: PROCHLORPERAZINE INJ 10 MG/2 ML VIAL IVP STA (19:48)
[2024-04-26] MEDS: SODIUM CHLORIDE 0.9% 1,000 ML IV STA (19:51)
[2024-04-26] MEDS: PANTOPRAZOLE 40 MG/10 ML VIAL IVP STA (19:51)
[2024-04-26] MEDS: FAMOTIDINE 20 MG/2 ML VIAL IV STA (19:51)
[2024-04-26 20:05] LABS: Basophils % (A) 0 %; Eosinophils # (A) 0.1 k/uL (0-0.7); Eosinophils % (A) 1 %; HCT 35.6 % (34.0-46.0); HGB 12.6 gm/dL (11.4-16.0); Lymphocytes # (A) 1.8 k/uL (1.0-4.8); Lymphocytes % (A) 17 %; MCH 30.2 pg (25.0-35.0); MCHC 35.3 g/dL (31.0-37.0); MCV 85.6 fL (80.0-100.0); Mean Platelet Volume 7.4; Monocytes # (A) 0.8 k/uL (0-1.0); Monocytes % (A) 7 %; Neutrophils # (A) 7.8 k/uL (1.3-7.7); Neutrophils % (A) 74 %; Platelet Count 326 k/uL (150-450); RBC 4.16 m/uL (3.80-5.40); RDW 13.8 % (11.5-15.5); WBC 10.6 k/uL (3.8-10.6)
--- NOTE | 2024-04-26 20:07 | ED ---
Nausea/Vomiting/Diarrhea HPI - General Chief complaint: Nausea/Vomiting/Diarrhea Stated complaint: Vomiting Time Seen by Provider: 04/26/24 19:33 Source: patient, RN notes reviewed Mode of arrival: ambulatory Limitations: no limitations - History of Present Illness Initial comments: This is a 53-year-old female who presents to the emergency department for nausea, vomiting, and diarrhea. Symptoms started 3 days ago. She went to [facility] yesterday and was given a prescription for Zofran. States that Zofran is usually effective, however she has taken 5 doses today and continued to vomit. States that she was also noted to have low magnesium and they replaced it while she was there. Denies any associated abdominal pain. She saw her primary care provider today and was given Reglan, which she states was helpful, but did not completely resolve her symptoms. Also states that her primary care provider noticed she seemed to be breathing heavily and advised she come to the emergency department for further evaluation. States that she has had diarrhea as well. Describes this as essentially straight liquid without any form. Unsure how many times a day this is occurring. Denies any new foods, antibiotics, or medications. MD complaint: nausea, vomiting, diarrhea - Related Data Home Medications Medication Instructions Recorded Confirmed Estrogens, Conjugated [Premarin] 0.9 mg PO DAILY 10/06/17 07/10/23 Atorvastatin [Lipitor] 10 mg PO HS 10/13/19 07/10/23 Omeprazole 20 mg PO DAILY 07/27/20 07/10/23 Albuterol Sulfate [Proair Hfa] 2 puff INHALATION RT-QID PRN 11/15/21 07/10/23 Fluticasone/Umeclidin/Vilanter 1 puff INHALATION DAILY 10/23/22 07/10/23 [Trelegy Ellipta 200-62.5-25] Gabapentin 300 mg PO TID 07/06/23 07/10/23 HYDROcodone/APAP 10-325MG [[place] 1 tab PO Q6HR PRN 07/06/23 07/10/23 10-325] Previous Rx's Medication Instructions Recorded Azithromycin [Zithromax] 500 mg PO DAILY #30 tab 11/25/22 Ethambutol [Myambutol] 800 mg PO DAILY #30 tab 11/25/22 rifAMPin [Rifadin] 600 mg PO DAILY #30 cap 11/25/22 Cyclobenzaprine [Flexeril] 10 mg PO TID PRN #12 tablet 01/27/23 Ondansetron Odt [Zofran Odt] 4 mg PO Q8HR PRN #15 tab 07/12/23 Metoclopramide [Reglan] 10 mg PO Q6H PRN #30 tab 04/27/24 Ondansetron Odt [Zofran Odt] 4 mg PO Q8HR PRN #30 tab 04/27/24 Promethazine Suppository 25 mg RECTAL QID PRN #20 supp 04/27/24 [Phenergan] Allergies Allergy/AdvReac Type Severity Reaction Status Date / Time No Known Allergies Allergy Verified 04/26/24 19:31 Review of Systems ROS Statement: Those systems with pertinent positive or pertinent negative responses have been documented in the HPI. ROS Other: All systems not noted in ROS Statement are negative. Past Medical History Past Medical History: Cancer Additional Past Medical History / Comment(s): hx ulcers, hx Cervical cancer, runs low BP, hx COVID 2020, migranes, bronchitits, spot on lung seen on PET scan-HAD MYCOBACTERIUM INFECTION-CURRENTLY ON PREVENTIVE TX, History of Any Multi-Drug Resistant Organisms: None Reported Past Surgical History: Hysterectomy Additional Past Surgical History / Comment(s): colonoscopies, left breast biopsy/with wire, EGD. pain clinic procedure, lung mass removal, left hip replacement, left upper lobectomy lung Past Anesthesia/Blood Transfusion Reactions: Motion Sickness, Postoperative Nausea & Vomiting (PONV) Additional Past Anesthesia/Blood Transfusion Reaction / Comment(s): . Past Psychological History: Anxiety Smoking Status: Former smoker Past Alcohol Use History: None Reported Past Drug Use History: Marijuana - Past Family History Mother Family Medical History: No Reported History Additional Family Medical History / Comment(s): . General Exam Limitations: no limitations General appearance: alert, in no apparent distress Head exam: Present: atraumatic, normocephalic, normal inspection Respiratory exam: Present: normal lung sounds bilaterally. Absent: respiratory distress, wheezes, rales, rhonchi, stridor Cardiovascular Exam: Present: regular rate, normal rhythm, normal heart sounds. Absent: systolic murmur, diastolic murmur, rubs, gallop, clicks GI/Abdominal exam: Present: soft, normal bowel sounds. Absent: distended, tenderness, guarding, rebound, rigid Neurological exam: Present: alert, oriented X3, CN II-XII intact Psychiatric exam: Present: normal affect, normal mood Skin exam: Present: warm, dry, intact, normal color. Absent: rash Course Vital Signs 04/26/24 04/26/24 04/26/24 19:28 20:00 21:00 Temperature 98.2 F Pulse Rate 62 93 68 Respiratory 18 18 18 Rate Blood Pressure 97/68 129/99 108/50 O2 Sat by Pulse 95 99 95 Oximetry 04/26/24 04/27/24 23:00 00:52 Temperature Pulse Rate 59 L 78 Respiratory 22 18 Rate Blood Pressure 114/68 129/89 O2 Sat by Pulse 97 97 Oximetry Medical Decision Making - Medical Decision Making This is a 53 year old female who presents to the emergency department for nausea, vomiting, and diarrhea. Was pt. sent in by a medical professional or institution? @ -Her PCP Did you speak to anyone other than the patient for history? @ -No Did you review nursing and triage notes? @ -Yes, and I agree, it is accurate with regards to the patient's symptoms. Were old charts reviewed? @ -No Differential Diagnosis? @ -Differential Nausea and Vomiting: Gastroenteritis, cholecystitis, appendicitis, pancreatitis, migraine, benign p ositional vertigo, food borne illness, pyelonephritis, irritable bowel syndrome, influenza, Covid, GERD, incarcerated hernia, intestinal obstruction, this is not meant to be an all-inclusive list. EKG interpreted by me (3pts min.)? @ -EKG interpreted by me demonstrating the following: Sinus rhythm. Ventricular rate 65 bpm, ID interval 167 ms, QRS duration 80 ms, QTc 304 ms. X-rays interpreted by me (1pt min.)? @ -Chest x-ray obtained, my interpretation identifies no localized consolidations or infiltrates. CT interpreted by me (1pt min.)? @ -Not obtained U/S interpreted by me (1pt. min.)? @ -Gallbladder ultrasound obtained. My interpretation identifies no evidence of cholelithiasis. What testing was considered but not performed? (CT, X-rays, U/S, labs)? Why? @ -None What meds were considered but not given? Why? @ -None Did you discuss the management of the patient with other professionals? @ -No Did you reconcile home meds? @ -No Was smoking cessation discussed for >3mins.? @ -I discussed smoking cessation for greater than 3 minutes. The risk of s moking were discussed with the patient including but not limited to risks of cancer, stroke, coronary artery disease and COPD. Also discussed with patient were multiple methods of quitting smoking. Lastly we discussed the financial cost of smoking. Was critical care preformed (if so, how long)? @ -No Were there social determinants of health that impacted care today? How? (Homelessness, low income, unemployed, alcoholism, drug addiction, transportation, low edu. Level, literacy, decrease access to med. care, fpc, rehab)? @ -No Was there de-escalation of care discussed even if they declined? (Discuss DNR or withdrawal of care, Hospice)? @ -No What co-morbidities impacted this encounter? (DM, HTN, Smoking, COPD, CAD, Cancer, CVA, Hep., AIDS, mental health diagnosis, sleep apnea, morbid obesity)? @ -Smoking Was patient admitted / discharged? @ -Discharged. Lab work demonstrates hypokalemia with a potassium of 2.8. Lactic acid elevated at 3.3. Magnesium low at 1.4. LFTs are also mildly elevated. COVID, influenza, and RSV testing negative. Urinalysis negative for signs of infection. Chest x-ray reveals no acute findings. Given the elevation in LFTs, gallbladder ultrasound was obtained. This revealed no acute process. Lactic acid was repeated and found to be within normal limits. She was initially given 400 mg of magnesium oxide as well as 2 g of IVPB magnesium sulfate. She was also given 40 mEq of K-Dur and 20 mEq of IVPB potassium chlor [place]. We were able to get her symptoms to a tolerable level and she was tolerating oral intake. At that point she felt stable for discharge home. Additional 400 mg of magnesium oxide and 40 mEq of K-Dur administered prior to discharge. She did require multiple nausea medications to control her symptoms. She was given an Rx for Zofran and Reglan. Phenergan suppositories also prescribed in the event she is unable to keep down the oral medications. We did attempt to get a stool sample to test for C. difficile prior to discharge, however she was unable to provide one. Advised she slowly advance her diet as tolerated and remain well-hydrated. Patient discharged home in stable condition. Undiagnosed new problem with uncertain prognosis? @ -None Drug Therapy requiring intensive monitoring for toxicity (Heparin, Nitro, Insulin, Cardizem)? @ -None Were any procedures done? @ -None Diagnosis/symptom? @ -Nausea and vomiting, Hypokalemia, hypomagnesemia Acute, or Chronic, or Acute on Chronic? @ -Acute Uncomplicated (without systemic symptoms) or Complicated (systemic symptoms)? @ -Uncomplicated Side effects of treatment? @ -None Exacerbation, Progression, or Severe Exacerbation] @ -Not applicable Poses a threat to life or bodily function? @ -No Return precautions reviewed in depth, the patient is instructed to return to the emergency department with any new, worsening, or concerning symptoms. Patient verbalized understanding. This case was discussed in detail with the attending ED physician, Dr. Cottrell. Presentation, findings, and treatment plan discussed in detail as well. - Lab Data Result diagrams: 04/26/24 19:46 04/26/24 19:46 Lab Results 04/26/24 04/26/24 04/26/24 Range/Units 19:46 19:46 19:46 WBC 10.6 (3.8-10.6) k/uL RBC 4.16 (3.80-5.40) m/uL Hgb 12.6 (11.4-16.0) gm/dL Hct 35.6 (34.0-46.0) % MCV 85.6 (80.0-100.0) fL MCH 30.2 (25.0-35.0) pg MCHC 35.3 (31.0-37.0) g/dL RDW 13.8 (11.5-15.5) % Plt Count 326 (150-450) k/uL MPV 7.4 Neutrophils % 74 % Lymphocytes % 17 % Monocytes % 7 % Eosinophils % 1 % Basophils % 0 % Neutrophils # 7.8 H (1.3-7.7) k/uL Lymphocytes # 1.8 (1.0-4.8) k/uL Monocytes # 0.8 (0-1.0) k/uL Eosinophils # 0.1 (0-0.7) k/uL Basophils # 0.0 (0-0.2) k/uL Sodium 135 L (137-145) mmol/L Potassium 2.8 L (3.5-5.1) mmol/L Chloride 101 (98-107) mmol/L Carbon Dioxide 22 (22-30) mmol/L Anion Gap 12 mmol/L BUN 9 (7-17) mg/dL Creatinine 0.64 (0.52-1.04) mg/dL Est GFR (CKD-EPI)AfAm >90 (>60 ml/min/1.73 sqM) Est GFR (CKD-EPI)NonAf >90 (>60 ml/min/1.73 sqM) Glucose 105 H (74-99) mg/dL Lactic Ac Sepsis Rflx Plasma Lactic Acid Arie 3.3 H* (0.7-2.0) mmol/L Calcium 9.5 (8.4-10.2) mg/dL Phosphorus 2.2 L (2.5-4.5) mg/dL Magnesium 1.4 L (1.6-2.3) mg/dL Total Bilirubin 1.5 H (0.2-1.3) mg/dL AST 45 H (14-36) U/L ALT 23 (4-34) U/L Alkaline Phosphatase 95 (38-126) U/L Total Protein 6.9 (6.3-8.2) g/dL Albumin 4.5 (3.5-5.0) g/dL Amylase 106 (30-110) U/L Lipase 70 (23-300) U/L Urine Color Urine Appearance (Clear) Urine pH (5.0-8.0) Ur Specific [place] (1.001-1.035) Urine Protein (Negative) Urine Glucose (UA) (Negative) Urine Ketones (Negative) Urine Blood (Negative) Urine Nitrite (Negative) Urine Bilirubin (Negative) Urine Urobilinogen (<2.0) mg/dL Ur Leukocyte Esterase (Negative) Urine RBC (0-5) /hpf Urine WBC (0-5) /hpf Ur Squamous Epith Cells (0-4) /hpf Amorphous Sediment (None) /hpf Urine Bacteria (None) /hpf Hyaline Casts (0-2) /lpf Urine Mucus (None) /hpf Influenza Type A (PCR) (Not Detectd) Influenza Type B (PCR) (Not Detectd) RSV (PCR) (Not Detectd) SARS-CoV-2 (PCR) (Not Detectd) 04/26/24 04/26/24 04/26/24 Range/Units 19:52 21:02 23:35 WBC (3.8-10.6) k/uL RBC (3.80-5.40) m/uL Hgb (11.4-16.0) gm/dL Hct (34.0-46.0) % MCV (80.0-100.0) fL MCH (25.0-35.0) pg MCHC (31.0-37.0) g/dL RDW (11.5-15.5) % Plt Count (150-450) k/uL MPV Neutrophils % % Lymphocytes % % Monocytes % % Eosinophils % % Basophils % % Neutrophils # (1.3-7.7) k/uL Lymphocytes # (1.0-4.8) k/uL Monocytes # (0-1.0) k/uL Eosinophils # (0-0.7) k/uL Basophils # (0-0.2) k/uL Sodium (137-145) mmol/L Potassium (3.5-5.1) mmol/L Chloride (98-107) mmol/L Carbon Dioxide (22-30) mmol/L Anion Gap mmol/L BUN (7-17) mg/dL Creatinine (0.52-1.04) mg/dL Est GFR (CKD-EPI)AfAm (>60 ml/min/1.73 sqM) Est GFR (CKD-EPI)NonAf (>60 ml/min/1.73 sqM) Glucose (74-99) mg/dL Lactic Ac Sepsis Rflx Y Plasma Lactic Acid Arie 1.1 (0.7-2.0) mmol/L Calcium (8.4-10.2) mg/dL Phosphorus (2.5-4.5) mg/dL Magnesium (1.6-2.3) mg/dL Total Bilirubin (0.2-1.3) mg/dL AST (14-36) U/L ALT (4-34) U/L Alkaline Phosphatase (38-126) U/L Total Protein (6.3-8.2) g/dL Albumin (3.5-5.0) g/dL Amylase (30-110) U/L Lipase (23-300) U/L Urine Color Urine Appearance (Clear) Urine pH (5.0-8.0) Ur Specific [place] (1.001-1.035) Urine Protein (Negative) Urine Glucose (UA) (Negative) Urine Ketones (Negative) Urine Blood (Negative) Urine Nitrite (Negative) Urine Bilirubin (Negative) Urine Urobilinogen (<2.0) mg/dL Ur Leukocyte Esterase (Negative) Urine RBC (0-5) /hpf Urine WBC (0-5) /hpf Ur Squamous Epith Cells (0-4) /hpf Amorphous Sediment (None) /hpf Urine Bacteria (None) /hpf Hyaline Casts (0-2) /lpf Urine Mucus (None) /hpf Influenza Type A (PCR) Not Detected (Not Detectd) Influenza Type B (PCR) Not Detected (Not Detectd) RSV (PCR) Not Detected (Not Detectd) SARS-CoV-2 (PCR) Not Detected (Not Detectd) 04/27/24 Range/Units 00:34 WBC (3.8-10.6) k/uL RBC (3.80-5.40) m/uL Hgb (11.4-16.0) gm/dL Hct (34.0-46.0) % MCV (80.0-100.0) fL MCH (25.0-35.0) pg MCHC (31.0-37.0) g/dL RDW (11.5-15.5) % Plt Count (150-450) k/uL MPV Neutrophils % % Lymphocytes % % Monocytes % % Eosinophils % % Basophils % % Neutrophils # (1.3-7.7) k/uL Lymphocytes # (1.0-4.8) k/uL Monocytes # (0-1.0) k/uL Eosinophils # (0-0.7) k/uL Basophils # (0-0.2) k/uL Sodium (137-145) mmol/L Potassium (3.5-5.1) mmol/L Chloride (98-107) mmol/L Carbon Dioxide (22-30) mmol/L Anion Gap mmol/L BUN (7-17) mg/dL Creatinine (0.52-1.04) mg/dL Est GFR (CKD-EPI)AfAm (>60 ml/min/1.73 sqM) Est GFR (CKD-EPI)NonAf (>60 ml/min/1.73 sqM) Glucose (74-99) mg/dL Lactic Ac Sepsis Rflx Plasma Lactic Acid Arie (0.7-2.0) mmol/L Calcium (8.4-10.2) mg/dL Phosphorus (2.5-4.5) mg/dL Magnesium (1.6-2.3) mg/dL Total Bilirubin (0.2-1.3) mg/dL AST (14-36) U/L ALT (4-34) U/L Alkaline Phosphatase (38-126) U/L Total Protein (6.3-8.2) g/dL Albumin (3.5-5.0) g/dL Amylase (30-110) U/L Lipase (23-300) U/L Urine Color Colorless Urine Appearance Clear (Clear) Urine pH 6.0 (5.0-8.0) Ur Specific [place] 1.015 (1.001-1.035) Urine Protein Negative (Negative) Urine Glucose (UA) Negative (Negative) Urine Ketones Trace H (Negative) Urine Blood Small H (Negative) Urine Nitrite Negative (Negative) Urine Bilirubin Negative (Negative) Urine Urobilinogen <2.0 (<2.0) mg/dL Ur Leukocyte Esterase Small H (Negative) Urine RBC 2 (0-5) /hpf Urine WBC 8 H (0-5) /hpf Ur Squamous Epith Cells 2 (0-4) /hpf Amorphous Sediment Rare H (None) /hpf Urine Bacteria Rare H (None) /hpf Hyaline Casts 5 H (0-2) /lpf Urine Mucus Occasional H (None) /hpf Influenza Type A (PCR) (Not Detectd) Influenza Type B (PCR) (Not Detectd) RSV (PCR) (Not Detectd) SARS-CoV-2 (PCR) (Not Detectd) - Radiology Data Radiology results: report reviewed, image reviewed Disposition Clinical Impression: Nausea and vomiting, Hypokalemia, Hypomagnesemia, Nicotine dependence Disposition: HOME SELF-CARE Instructions (If sedation given, give patient instructions): Acute Nausea and Vomiting (ED) Additional Instructions: Return to the emergency department with any new, worsening, or concerning symptoms. The Zofran can be taken up to every 8 hours. The Reglan can be taken up to every 6 hours. If those are not effectively controlling your symptoms, you can try the Phenergan suppositories. Be aware that these may make you drowsy. Slowly advance your diet as tolerated and remain well-hydrated. Follow up with your primary care provider in 1-2 days. Prescriptions: Promethazine Suppository [Phenergan] 25 mg RECTAL QID PRN #20 supp PRN Reason: Nausea And Vomiting Metoclopramide [Reglan] 10 mg PO Q6H PRN #30 tab PRN Reason: Nausea And Vomiting Ondansetron Odt [Zofran Odt] 4 mg PO Q8HR PRN #30 tab PRN Reason: Nausea And Vomiting Is patient prescribed a controlled substance at d/c from ED?: No Referrals: Preet Escobedo MD [Primary Care Provider] - 1-2 days Time of Disposition: 00:34
[2024-04-26 20:24] LABS: ALT 23 U/L (4-34); AST 45 U/L (14-36); African American GFR (CKD) >90 (>60 ml/min/1.73 sqM); Albumin 4.5 g/dL (3.5-5.0); Alkaline Phosphatase 95 U/L (38-126); Amylase 106 U/L (30-110); Anion Gap 12 mmol/L; Blood Urea Nitrogen 9 mg/dL (7-17); Calcium 9.5 mg/dL (8.4-10.2); Carbon Dioxide 22 mmol/L (22-30); Chloride 101 mmol/L (98-107); Glucose 105 mg/dL (74-99); Lipase 70 U/L (23-300); Magnesium 1.4 mg/dL (1.6-2.3); Non-African American GFR(CKD) >90 (>60 ml/min/1.73 sqM); Phosphorus 2.2 mg/dL (2.5-4.5); Potassium 2.8 mmol/L (3.5-5.1); Sodium 135 mmol/L (137-145); Total Bilirubin 1.5 mg/dL (0.2-1.3); Total Protein 6.9 g/dL (6.3-8.2)
--- NOTE | 2024-04-26 20:26 | XR ---
EXAMINATION TYPE: XR chest 2V DATE OF EXAM: 04/26/2024 8:10 PM CLINICAL INDICATION:Female, 53 years old with history of OTF; PHH COMPARISON: Chest radiographs from 12/03/2022 TECHNIQUE: XR chest 2V Frontal view of the chest. FINDINGS: Lungs/Pleura: There is flattening of the diaphragm with increased lucency of the lungs. No evidence o f pneumothorax, pleural effusion or focal consolidation. Pulmonary vascularity: Unremarkable. Heart/mediastinum: Cardiomediastinal silhouette is unremarkable. Musculoskeletal: No acute osseous pathology. IMPRESSION: 1. No acute cardiopulmonary disease process. 2. COPD changes.
[2024-04-26] MEDS: METOCLOPRAMIDE 5 MG/ML 2 ML VIAL IVP STA (21:00)
[2024-04-26] MEDS: POTASSIUM CHLORIDE 20 MEQ in WATER FOR INJECTION 1 100ML.BAG IVPB STA (21:02)
--- NOTE | 2024-04-26 21:45 | US ---
EXAMINATION TYPE: US gallbladder DATE OF EXAM: 04/26/2024 COMPARISON: CT 2019 CLINICAL INDICATION: Female, 53 years old with history of Epigastric pain; Vomiting since Thursday. P atient states no abdominal pain. TECHNIQUE: Multiple sonographic images of the right upper quadrant are obtained. FINDINGS: EXAM MEASUREMENTS: Liver Length: 14.2 cm Gallbladder Wall: 0.2 cm CBD: 0.3 cm Right Kidney: 9.7 x 4.2 x 5.1 cm BARBER APPRENTICE NOTES:Slightly limited due to overlying gas Pancreas: Tail obscured by gas, portions visualized appear echogenic. Pancreatic duct seen, measures 2mm. Liver: wnl as best seen Gallbladder: wnl Evidence for sonographic Garcia's sign: No CBD: wnl Right Kidney: No hydronephrosis or masses seen as best visualized, lateral aspect slightly obscured. IMPRESSION: No sonographic evidence for acute process.
[2024-04-26] MEDS: POTASSIUM CHLORIDE ER 20 MEQ TAB.ER PO STA (23:07)
[2024-04-26] MEDS: MAGNESIUM OXIDE 400 MG TAB PO STA (23:07)
[2024-04-26] MEDS: ONDANSETRON 4 MG/2 ML VIAL IVP STA (23:36)
[2024-04-26] MEDS: droPERidol 5 MG/2 ML VIAL IVP ONE (23:37)
[2024-04-26] MEDS: MAGNESIUM SULFATE-D5W PMX 1 GM in DEXTROSE/WATER 1 100ML.BAG IVPB SCH (23:38)
[2024-04-27] MEDS: MAGNESIUM OXIDE 400 MG TAB PO STA (00:48)
[2024-04-27] MEDS: PROMETHAZINE SUPPOSITORY 25 MG SUPP RECTAL STA (00:48)
[2024-04-27] MEDS: ONDANSETRON 4 MG ODT STARTER PACK 2 TAB BTL PO STA (00:48)
[2024-04-27] MEDS: POTASSIUM CHLORIDE ER 20 MEQ TAB.ER PO STA (00:48)
[2024-04-27 00:53] VITALS: BP 129/89; PULSE 78; RESP 18
[2024-04-27 01:08] LABS: Amorphous Sediment,Urine Rare /hpf; Appearance,Urine Clear (Clear); Bacteria,Urine Rare /hpf; Bilirubin,Urine Negative (Negative); Blood,Urine Small (Negative); Color,Urine Colorless; Glucose,Urine (UA) Negative (Negative); Hyaline Casts,Urine 5 /lpf (0-2); Ketones,Urine Trace (Negative); Leukocyte Esterase,Urine Small (Negative); Mucus,Urine Occasional /hpf; Nitrite,Urine Negative (Negative); Protein,Urine Negative (Negative); RBC,Urine 2 /hpf (0-5); Specific Gravity,Urine 1.015 (1.001-1.035); Squamous Epithelial Cell,Urine 2 /hpf (0-4); Urobilinogen,Urine <2.0 mg/dL (<2.0); WBC,Urine 8 /hpf (0-5)
== END 2024-04-27 00:53 | disposition home or self-care (01) ==
LOC: EC 19:17
DX: R11.2 Nausea with vomiting, unspecified (principal); E87.6 Hypokalemia; E83.42 Hypomagnesemia; F17.200 Nicotine dependence, unspecified, uncomplicated; Z86.16 Personal history of COVID-19
CPT/HCPCS: 93005; 80053; 82150; 83605; 83690; 83735; 84100; 85025; 87636; 71046; 76705; 99285; 96365; 96367; 96366; 96375; J0780; J2765; J3480; J2405; J3490; J3475; J1790; J2470; 36415; 81001

== ENCOUNTER → 2024-09-27 | Outpatient (CLI) | payer MEDICAID, OTHER ==
--- NOTE | 2024-09-27 11:35 | MR ---
EXAMINATION TYPE: MR brain/cspine wo DATE OF EXAM: 09/27/2024 6:43 AM COMPARISON: None. CLINICAL INDICATION: Female, 53 years old with history of M54.12 RADICULOPATHY R20.2 PARESTHESIA OF S KIN, Dizziness, left shoulder pain, LUE radiculopathy. IV Contrast: None TECHNIQUE: Multiplanar, multisequence imaging of the brain and cervical spine is performed without in travenous contrast. FINDINGS: The unger-white junctions, ventricular system, basal cisterns appear unremarkable. Diffusion-weighted imaging shows no evidence of restricted diffusion to suggest acute/subacute infarct. Intracranial art erial flow voids are maintained. Midline structures show no abnormality. Couple foci of high T2/FLAIR signal intensity are seen within the subcortical white matter. Largest is within the right parietal lobe subcortical white matter measuring up to 4 mm (series 601, image 22). The susceptibility weighte d images do not reveal any evidence for micro-hemorrhage. The bone marrow signal is within normal limits. The paranasal sinuses and globes are unremarkable. Sagittal images of the cervical spine show the craniocervical junction to appear within normal limits . The cervical and upper thoracic spinal cord is normal in course, caliber, and signal. Vertebral a lignment is anatomic. The vertebral body heights are normal. Multilevel disc desiccation with disc h eight loss involving C4-C6. Type II Modic changes involving the endplates around the C4-C5 disc. The remaining bone marrow signal intensity is within normal limits. No significant central canal or neural foraminal stenosis at C2-C3. Small central disc protrusion at C3-C4 with mild effacement of the anterior thecal sac. No neural for aminal stenosis. Broad-based disc bulge with mild to moderate effacement of the anterior thecal sac at C4-C5. There is close proximity to the spinal cord. Mild bilateral neural foraminal stenosis. Eccentric right broad-based disc bulge at C5-C6 with mild to moderate effacement of the anterior thec al sac. Uncovertebral joint hypertrophy with moderate left neural foraminal stenosis. The right neura l foramen is patent. C6-C7 disc extrusion with approximately 2 to 3 mm of caudal and cranial migration without sequestrati on along the left paracentral/subarticular zone region. This is superimposed upon a broad-based disc bulge with moderate central canal stenosis. Mild right neural foraminal stenosis. Severe left neurofo raminal stenosis (series 1301, image 21). No significant central canal or neural foraminal stenosis at C7-T1. IMPRESSION: 1. No evidence of intracranial mass or acute/subacute infarct. 2. Minimal nonspecific white matter changes, likely related to small vessel ischemic disease versus other etiologies such as migraine or demyelination. 3. Multilevel degenerative disc disease and uncovertebral joint hypertrophy as described above. This is most pronounced at C6-C7 with disc extrusion resulting in moderate central canal stenosis and sev ere left neural foraminal stenosis. [facility], , 09/27/2024 11:33 AM
== END | disposition home or self-care (01) ==
LOC: RADMRIMAIN 05:42
PROVIDERS: ATTEND Family Medicine
DX: M48.02 Spinal stenosis, cervical region (principal); R20.2 Paresthesia of skin; M50.123 Cervical disc disorder at C6-C7 level with radiculopathy
CPT/HCPCS: 70551; 72141

== ENCOUNTER → 2024-12-16 | Outpatient (CLI) | payer MEDICAID, OTHER ==
--- NOTE | 2024-12-16 17:29 | CT ---
EXAMINATION TYPE: CT chest wo con CT DLP: 160.2 mGycm, Automated exposure control for dose reduction was used. DATE OF EXAM: 12/16/2024 5:07 PM COMPARISON: CT chest 11/17/2022, 11/04/2022, 05/12/2022, 01/30/2022, PET CT 12/20/2021 CLINICAL INDICATION:Female, 54 years old with history of J84.10 PULMONARY FIBROSIS, UNSPECIFIED; PHH, f/u pulmonary fibrosis TECHNIQUE: Multiple axial images were obtained through the chest without IV contrast. Lack of IV or o ral contrast limits evaluation of solid and hollow organ viscera. . Coronal and sagittal reformats re viewed. FINDINGS: LUNGS/ PLEURA: Postsurgical changes of the left lung with regions of linear scarring within the anter ior left midlung and left apex. No honeycombing. Moderate centrilobular emphysematous changes. No pn eumothorax or pleural effusion. Similar group calcifications within the right lower lobe. No new or e nlarging pulmonary nodule. AIRWAY: Patent and unremarkable.. HEART: Size within normal limits.No pericardial effusion. Mild coronary artery calcifications present . MEDIASTINUM: No gross evidence of adenopathy. VASCULATURE: No aortic aneurysm. Mild atherosclerotic calcification of the aorta and its branches. MUSCULOSKELETAL: No acute osseous abnormalities SOFT TISSUES/LYMPH NODES: Surgical clips within the left breast. LOWER NECK: No significant findings. UPPER ABDOMEN: No significant findings. IMPRESSION: 1. No acute thoracic process. No evidence for interstitial lung disease. 2. Postsurgical changes of the left lung with few regions of linear pulmonary fibrotic scarring. 3. Moderate emphysematous changes. [facility], , 12/16/2024 5:27 PM
== END | disposition home or self-care (01) ==
LOC: RADCTMAIN 16:43
PROVIDERS: ATTEND Family Medicine
DX: J43.9 Emphysema, unspecified (principal); J84.10 Pulmonary fibrosis, unspecified; Z98.890 Other specified postprocedural states
CPT/HCPCS: 71250